=== PATIENT | male | born 1995 | race American Indian/Alaskan Native ===

== ENCOUNTER 2018-08-15 22:51 | Emergency (ER) | payer SELFPAY ==
[2018-08-15 23:26] VITALS: BP 107/66
[2018-08-15 23:42] LABS: Hematocrit 43.3 % (35.5-45.6); Mean Corpuscular HGB Conc 35 % (32-34); Mean Corpuscular Hemoglobin 28 pg (28-32); Mean Corpuscular Volume 81 fl (84-94); Platelet Count 219 K/mm3 (140-440); Red Blood Count 5.32 M/mm3 (3.65-5.03); Red Cell Distribution Width 13.4 % (13.2-15.2)
[2018-08-15 23:57] LABS: BUN/Creatinine Ratio 10; Blood Urea Nitrogen 12 mg/dL (9-20); Calcium 8.9 mg/dL (8.4-10.2); Hemolysis Index 7
[2018-08-16 00:41] LABS: Band Neutrophils # (Manual) 0.5 K/mm3; Basophils % (Manual) 0 % (0.0-1.8); Eosinophils % (Manual) 0 % (0.0-4.3); Platelet Estimate Consistent w Auto; RBC Morphology Normal; Total Cells Counted 100
--- NOTE | 2018-08-16 01:05 | Emergency Department Report ---
ED General Adult HPI - General Chief complaint: Weakness Stated complaint: SEVERE WEAKNESS/LOSS OF APPETITE Time Seen by Provider: 08/16/18 00:58 Source: patient Mode of arrival: Ambulatory Limitations: No Limitations - History of Present Illness Initial comments: 23-year-old [place] male presents to the emergency room reporting weakness, decreased appetite, increased drowsiness diarrhea that has now resolved-see anything. It was reported that he has body aches, subjective fever, drinking well and urinating well. Denies any vomiting and admits to nausea. - Related Data Home Medications Medication Instructions Recorded Confirmed Last Taken No Known Home Medications [No 08/16/18 08/16/18 Unknown Reported Home Medications] Allergies Allergy/AdvReac Type Severity Reaction Status Date / Time No Known Allergies Allergy Verified 08/16/18 21:05 ED Review of Systems ROS: Stated complaint: SEVERE WEAKNESS/LOSS OF APPETITE Other details as noted in HPI ED Past Medical Hx - Past Medical History Previous Medical History?: No - Surgical History Past Surgical History?: No - Social History Smoking Status: Light Tobacco Smoker Substance Use Type: Alcohol - Medications Home Medications: Home Medications Medication Instructions Recorded Confirmed Last Taken Type No Known Home Medications [No 08/16/18 08/16/18 Unknown History Reported Home Medications] ED Physical Exam - General Limitations: No Limitations General appearance: alert, in no apparent distress - Head Head exam: Present: atraumatic, normocephalic - Eye Eye exam: Present: EOMI - ENT ENT exam: Present: mucous membranes moist - Respiratory Respiratory exam: Present: normal lung sounds bilaterally. Absent: respiratory distress - Cardiovascular Cardiovascular Exam: Present: regular rate, normal rhythm. Absent: systolic murmur, diastolic murmur, rubs, gallop - GI/Abdominal GI/Abdominal exam: Present: soft, normal bowel sounds. Absent: distended, tenderness - Extremities Exam Extremities exam: Present: normal inspection - Neurological Exam Neurological exam: Present: alert, oriented X3 - Psychiatric Psychiatric exam: Present: normal affect, normal mood - Skin Skin exam: Present: warm, dry, intact, normal color. Absent: rash ED Course Vital Signs 08/15/18 08/16/18 23:20 02:40 Temperature 99.7 F H Pulse Rate 100 H 66 Respiratory 16 16 Rate Blood Pressure 107/66 O2 Sat by Pulse 99 98 Oximetry ED Medical Decision Making - Lab Data Result diagrams: 08/15/18 23:30 08/15/18 23:30 - Radiology Data Radiology results: report reviewed FINAL REPORT EXAM: XR CHEST ROUTINE 2V HISTORY: flulike symptoms decreased wbc TECHNIQUE: A single view of the chest was submitted. FINDINGS: The heart size and vascularity appear normal. The lungs are clear. Pleural fluid is not seen. The skeletal structures appear normal. IMPRESSION: Normal chest. Transcribed By: RB Dictated By: MARIA VICTORIA LOZANO MD Electronically Authenticated By: MARIA VICTORIA LOZANO MD Signed Date/Time: 08/16/18125 DD/ 5 TD/TT: 08/16/18125 - Medical Decision Making Patient has been evaluated by this provider fast track. Patient was given Zofran for nausea CBC CMP urinalysis CBC shows neutropenic of a WBC of 2.7 Urinalysis protein is greater than 500 Patient had Zofran which she reports has helped. He started by mouth trial. This patient he needs to follow up with her primary care provider I also recommend patient to have HIV test he can have this done at [place] on [facility]. Critical care attestation.: If time is entered above; I have spent that time in minutes in the direct care of this critically ill patient, excluding procedure time. ED Disposition Clinical Impression: Neutropenic Qualifiers: Neutropenia type: unspecified Qualified Code(s): D70.9 - Neutropenia, unspecified Proteinuria, unspecified Qualifiers: Proteinuria type: unspecified Qualified Code(s): R80.9 - Proteinuria, unspecified Disposition: DC-01 TO HOME OR SELFCARE Is pt being admited?: No Does the pt Need Aspirin: No Condition: Stable Instructions: Neutropenia (ED) Additional Instructions: Please increase her fluid intake advance her diet as tolerated follow up with the primary care clinic I have listed several below for your convenience. Referrals: NOA GARCIA MD [Primary Care Provider] - 3-5 Days [facility] [Outside] - 3-5 Days QUINTON BOYD MD [Staff Physician] - 3-5 Days Forms: Accompanied Note, Work/School Release Form(ED)
[2018-08-16] MEDS ORDERED: ZOFRAN ODT PO ONE (01:25)
--- NOTE | 2018-08-16 01:27 | XRay Report ---
FINAL REPORT EXAM: XR CHEST ROUTINE 2V HISTORY: flulike symptoms decreased wbc TECHNIQUE: A single view of the chest was submitted. FINDINGS: The heart size and vascularity appear normal. The lungs are clear. Pleural fluid is not seen. The skeletal structures appear normal. IMPRESSION: Normal chest.
[2018-08-16 01:51] LABS: Bacteria,Urine 1+ /HPF (Negative); Bilirubin,Urine NEG (Negative); Blood,Urine SM (Negative); Color,Urine Amber (Yellow); Mucus,Urine 2+ /HPF; Urobilinogen,Urine < 2.0 mg/dL (<2.0)
[2018-08-16 01:53] LABS: Protein,Urine >500 mg/dL (Negative)
== END 2018-08-16 02:40 | disposition home or self-care (01) ==
LOC: ED 22:51
DX: D70.9 Neutropenia, unspecified (principal); R80.9 Proteinuria, unspecified; F17.200 Nicotine dependence, unspecified, uncomplicated
CPT/HCPCS: 36415; 71046; 80048; 81001; 85007; 85025; 93005; 93010; 99284; Q0162

== ENCOUNTER 2018-08-16 19:37 | Inpatient (IN) | payer SELFPAY ==
[2018-08-16] MEDS ORDERED: TYLENOL ONE (21:00)
[2018-08-16] MEDS ORDERED: NACL 0.9% 500 ML 500 ML IV ONE (21:10)
[2018-08-16] MEDS ORDERED: TYLENOL PO STA (21:10)
[2018-08-16 21:37] LABS: Basophils % (Auto) 0.7 % (0.0-1.8); Hematocrit 39.5 % (35.5-45.6); Hemoglobin 13.6 gm/dl (11.8-15.2); Lymphocytes # (Auto) 1.3 K/mm3 (1.2-5.4); Lymphocytes % (Auto) 43.3 % (13.4-35.0); Mean Corpuscular HGB Conc 35 % (32-34); Mean Corpuscular Hemoglobin 28 pg (28-32); Mean Corpuscular Volume 82 fl (84-94); Monocytes # (Auto) 0.3 K/mm3 (0.0-0.8); Monocytes % (Auto) 10.2 % (0.0-7.3); Platelet Count 163 K/mm3 (140-440); Red Blood Count 4.82 M/mm3 (3.65-5.03); Red Cell Distribution Width 13.2 % (13.2-15.2)
[2018-08-16 21:49] LABS: INR 0.99 (0.87-1.13)
[2018-08-16 22:11] LABS: Alanine Aminotransferase 53 units/L (7-56); Albumin 3.1 g/dL (3.9-5); BUN/Creatinine Ratio 9; Blood Urea Nitrogen 11 mg/dL (9-20); Calcium 7.8 mg/dL (8.4-10.2); Hemolysis Index 14
[2018-08-16] MEDS ORDERED: NACL 0.9% 1000 ML 1,000 ML IV ONE (22:12)
[2018-08-16] MEDS ORDERED: LEVAQUIN 750MG/150ML 750 MG/150 ML BAG IV ONE (22:13)
--- NOTE | 2018-08-16 22:18 | Emergency Department Report ---
- General Chief complaint: Weakness Stated complaint: WEAKNESS Time Seen by Provider: 08/16/18 22:11 Source: patient, EMS Mode of arrival: Stretcher Limitations: No Limitations - History of Present Illness Initial comments: Patient said that over the past 7 days he's been feeling generalized body weakness and has been having diarrhea with fever. He also said he is nauseous and hasn't been able to eat. Patient denies any medical problems. MD Complaint: generalized weakness, lack of energy -: Gradual, days(s) (7) Location: generalized Severity: moderate Severity scale (0 -10): 7 Quality: constant Consistency: constant Improves with: none Worsens with: none Associated Symptoms: fever/chills, headaches, loss of appetite, shortness of breath. denies: chest pain, confusion, dark stools, diaphoresis - Related Data Home Medications Medication Instructions Recorded Confirmed Last Taken No Known Home Medications [No 08/16/18 08/16/18 Unknown Reported Home Medications] Allergies Allergy/AdvReac Type Severity Reaction Status Date / Time No Known Allergies Allergy Verified 08/16/18 21:05 ED Review of Systems ROS: Stated complaint: WEAKNESS Other details as noted in HPI Comment: All other systems reviewed and negative Constitutional: chills, fever Eyes: denies: eye pain ENT: denies: ear pain Respiratory: shortness of breath. denies: cough Cardiovascular: denies: chest pain, palpitations, dyspnea on exertion, orthopnea Endocrine: no symptoms reported Gastrointestinal: abdominal pain, nausea, diarrhea. denies: vomiting, hematemesis, hematochezia Genitourinary: denies: urgency, dysuria, frequency Musculoskeletal: denies: back pain Skin: denies: rash, lesions Neurological: denies: headache, weakness, numbness Psychiatric: denies: anxiety, depression Hematological/Lymphatic: denies: easy bleeding, easy bruising ED Past Medical Hx - Past Medical History Previous Medical History?: No - Surgical History Past Surgical History?: No - Social History Smoking Status: Never Smoker Substance Use Type: None - Medications Home Medications: Home Medications Medication Instructions Recorded Confirmed Last Taken Type No Known Home Medications [No 08/16/18 08/16/18 Unknown History Reported Home Medications] ED Physical Exam - General Limitations: No Limitations General appearance: alert, in no apparent distress - Head Head exam: Present: atraumatic, normocephalic, normal inspection - Eye Eye exam: Present: normal appearance, PERRL, EOMI Pupils: Present: normal accommodation - ENT ENT exam: Present: normal exam, normal orophraynx, mucous membranes moist - Neck Neck exam: Present: normal inspection, full ROM. Absent: tenderness, meningismus - Respiratory Respiratory exam: Present: normal lung sounds bilaterally. Absent: respiratory distress, wheezes, rales, rhonchi, stridor - Cardiovascular Cardiovascular Exam: Present: regular rate, normal rhythm, normal heart sounds - GI/Abdominal GI/Abdominal exam: Present: soft, tenderness (Periumbilical region), normal bowel sounds. Absent: distended, guarding, rebound, rigid - Rectal Rectal exam: Present: deferred - Extremities Exam Extremities exam: Present: normal inspection, full ROM, normal capillary refill. Absent: tenderness - Back Exam Back exam: Present: normal inspection, full ROM. Absent: tenderness - Neurological Exam Neurological exam: Present: alert, oriented X3, CN II-XII intact - Psychiatric Psychiatric exam: Present: normal affect, normal mood - Skin Skin exam: Present: warm, dry, intact, normal color. Absent: rash - Assessment Assessment Interval: Baseline - Level of Consciousness 1a. Level of Consciousness: alert/keenly responsive - LOC Questions 1b. LOC Questions: answers both correctly - LOC Command 1c. LOC Commands: performs tasks correctly - Best Gaze 2. Best Gaze: normal - Visual 3. Visual: no visual loss - Facial Palsy 4. Facial Palsy: normal symmetrical movement - Motor Arm 5b. Motor Arm Right: no drift 5a. Motor Arm Left: no drift - Motor Leg 6a. Motor Leg Left: no drift 6b. Motor Leg Right: no drift - Limb Ataxia 7. Limb Ataxia: absent - Sensory 8. Sensory: normal - Best Language 9. Best Language: no aphasia - Dysarthria 10. Dysarthria: normal - Extinction and Inattention 11. Extinction/Inattention: no abnormality - Scoring Total Score: 0 Stroke Severity: No Stroke Symptoms ED Course Vital Signs 08/16/18 20:52 Temperature 102.2 F H Pulse Rate 82 Respiratory 20 Rate Blood Pressure 95/63 O2 Sat by Pulse 98 Oximetry ED Medical Decision Making - Lab Data Result diagrams: 08/16/18 21:26 08/16/18 21:26 Lab Results 09/27/18 09/27/18 09/27/18 Range/Units 21:26 21:26 21:26 WBC 3.1 L (4.5-11.0) K/mm3 RBC 4.82 (3.65-5.03) M/mm3 Hgb 13.6 (11.8-15.2) gm/dl Hct 39.5 (35.5-45.6) % MCV 82 L (84-94) fl MCH 28 (28-32) pg MCHC 35 H (32-34) % RDW 13.2 (13.2-15.2) % Plt Count 163 (140-440) K/mm3 Lymph % (Auto) 43.3 H (13.4-35.0) % [place] % (Auto) 10.2 H (0.0-7.3) % Eos % (Auto) 0.0 (0.0-4.3) % Baso % (Auto) 0.7 (0.0-1.8) % Lymph # 1.3 (1.2-5.4) K/mm3 [place] # 0.3 (0.0-0.8) K/mm3 Eos # 0.0 (0.0-0.4) K/mm3 Baso # 0.0 (0.0-0.1) K/mm3 Seg Neutrophils % 45.8 (40.0-70.0) % Seg Neutrophils # 1.4 L (1.8-7.7) K/mm3 PT 13.6 (12.2-14.9) Sec. INR 0.99 (0.87-1.13) VBG pH (7.320-7.420) Sodium 132 L (137-145) mmol/L Potassium 4.3 (3.6-5.0) mmol/L Chloride 98.0 (98-107) mmol/L Carbon Dioxide 24 (22-30) mmol/L Anion Gap 14 mmol/L BUN 11 (9-20) mg/dL Creatinine 1.2 (0.8-1.5) mg/dL Estimated GFR > 60 ml/min BUN/Creatinine Ratio 9 % Glucose 100 (75-100) mg/dL Lactic Acid (0.7-2.0) mmol/L Calcium 7.8 L (8.4-10.2) mg/dL Total Bilirubin 0.30 (0.1-1.2) mg/dL AST 103 H (5-40) units/L ALT 53 (7-56) units/L Alkaline Phosphatase 55 (35-129) units/L Total Protein 6.2 L (6.3-8.2) g/dL Albumin 3.1 L (3.9-5) g/dL Albumin/Globulin Ratio 1.0 % Lipase (13-60) units/L 08/16/18 08/16/18 08/16/18 Range/Units 21:26 21:26 21:26 WBC (4.5-11.0) K/mm3 RBC (3.65-5.03) M/mm3 Hgb (11.8-15.2) gm/dl Hct (35.5-45.6) % MCV (84-94) fl MCH (28-32) pg MCHC (32-34) % RDW (13.2-15.2) % Plt Count (140-440) K/mm3 Lymph % (Auto) (13.4-35.0) % [place] % (Auto) (0.0-7.3) % Eos % (Auto) (0.0-4.3) % Baso % (Auto) (0.0-1.8) % Lymph # (1.2-5.4) K/mm3 [place] # (0.0-0.8) K/mm3 Eos # (0.0-0.4) K/mm3 Baso # (0.0-0.1) K/mm3 Seg Neutrophils % (40.0-70.0) % Seg Neutrophils # (1.8-7.7) K/mm3 PT (12.2-14.9) Sec. INR (0.87-1.13) VBG pH 7.493 H (7.320-7.420) Sodium (137-145) mmol/L Potassium (3.6-5.0) mmol/L Chloride (98-107) mmol/L Carbon Dioxide (22-30) mmol/L Anion Gap mmol/L BUN (9-20) mg/dL Creatinine (0.8-1.5) mg/dL Estimated GFR ml/min BUN/Creatinine Ratio % Glucose (75-100) mg/dL Lactic Acid 1.10 (0.7-2.0) mmol/L Calcium (8.4-10.2) mg/dL Total Bilirubin (0.1-1.2) mg/dL AST (5-40) units/L ALT (7-56) units/L Alkaline Phosphatase (35-129) units/L Total Protein (6.3-8.2) g/dL Albumin (3.9-5) g/dL Albumin/Globulin Ratio % Lipase 35 (13-60) units/L 08/17/18 Range/Units 00:34 WBC (4.5-11.0) K/mm3 RBC (3.65-5.03) M/mm3 Hgb (11.8-15.2) gm/dl Hct (35.5-45.6) % MCV (84-94) fl MCH (28-32) pg MCHC (32-34) % RDW (13.2-15.2) % Plt Count (140-440) K/mm3 Lymph % (Auto) (13.4-35.0) % [place] % (Auto) (0.0-7.3) % Eos % (Auto) (0.0-4.3) % Baso % (Auto) (0.0-1.8) % Lymph # (1.2-5.4) K/mm3 [place] # (0.0-0.8) K/mm3 Eos # (0.0-0.4) K/mm3 Baso # (0.0-0.1) K/mm3 Seg Neutrophils % (40.0-70.0) % Seg Neutrophils # (1.8-7.7) K/mm3 PT (12.2-14.9) Sec. INR (0.87-1.13) VBG pH (7.320-7.420) Sodium (137-145) mmol/L Potassium (3.6-5.0) mmol/L Chloride (98-107) mmol/L Carbon Dioxide (22-30) mmol/L Anion Gap mmol/L BUN (9-20) mg/dL Creatinine (0.8-1.5) mg/dL Estimated GFR ml/min BUN/Creatinine Ratio % Glucose (75-100) mg/dL Lactic Acid 0.80 (0.7-2.0) mmol/L Calcium (8.4-10.2) mg/dL Total Bilirubin (0.1-1.2) mg/dL AST (5-40) units/L ALT (7-56) units/L Alkaline Phosphatase (35-129) units/L Total Protein (6.3-8.2) g/dL Albumin (3.9-5) g/dL Albumin/Globulin Ratio % Lipase (13-60) units/L - EKG Data -: EKG Interpreted by Me EKG shows normal: sinus rhythm Rate: normal (78) - EKG Data When compared to previous EKG there are: previous EKG unavailable Interpretation: LVH 08/16/18 22:15 Early Repolarization. No STEMI. - Radiology Data Radiology results: report reviewed, image reviewed CT scan of the head, abdomen and pelvis is unremarkable. Chest x-ray is also negative. - Medical Decision Making Patient's needs criteria for sepsis. He is dehydrated with hypertension, hypocalcemia, neutropenia and fever. His diabetes has been on and is still pending. Patient will be admitted by the hospitalist on-call Dr. Rhoades for further evaluation and management. Critical Care Time: Yes Critical care time in (mins) excluding proc time.: 45 Critical care attestation.: If time is entered above; I have spent that time in minutes in the direct care of this critically ill patient, excluding procedure time. ED Disposition Clinical Impression: Generalized weakness, Dehydration, Hypocalcemia Neutropenic Qualifiers: Neutropenia type: unspecified Qualified Code(s): D70.9 - Neutropenia, unspecified Diarrhea Qualifiers: Diarrhea type: unspecified type Qualified Code(s): R19.7 - Diarrhea, unspecified Sepsis Qualifiers: Sepsis type: sepsis due to unspecified organism Qualified Code(s): A41.9 - Sepsis, unspecified organism Fever Qualifiers: Fever type: unspecified Qualified Code(s): R50.9 - Fever, unspecified Hypotension Qualifiers: Hypotension type: unspecified hypotension type Qualified Code(s): I95.9 - Hypotension, unspecified Disposition: 09 OP ADMIT IP TO THIS HOSP Is pt being admited?: Yes Does the pt Need Aspirin: No Condition: Fair Referrals: PRIMARY CARE, [Primary Care Provider] - 3-5 Days Time of Disposition: 01:45
--- NOTE | 2018-08-16 22:36 | XRay Report ---
FINAL REPORT PROCEDURE: XR CHEST 1V AP TECHNIQUE: Chest radiograph anteroposterior view. CPT 46484 HISTORY: possible Sepsis COMPARISON: No prior studies are available for comparison. FINDINGS: Heart: Normal. Mediastinum/Vessels: Normal. Lungs/Pleural space: Normal. Bony thorax: No acute osseous abnormality. Life support devices: Monitoring devices.. IMPRESSION: No acute cardiopulmonary abnormality.
--- NOTE | 2018-08-16 23:17 | Cat Scan Report ---
FINAL REPORT PROCEDURE: CT HEAD/BRAIN WO CON TECHNIQUE: Computerized tomography of the head was performed without contrast material. HISTORY: Headache COMPARISON: No prior studies are available for comparison. FINDINGS: Skull and scalp: Normal. Paranasal sinuses: Normal. Ventricles and subarachnoid spaces: Normal. Cerebrum: No evidence of hemorrhage, acute infarction or mass . Cerebellum and brainstem: No evidence of hemorrhage, acute infarction or mass. Vasculature: Normal. Comments: None. IMPRESSION: Normal Examination
--- NOTE | 2018-08-16 23:23 | Cat Scan Report ---
FINAL REPORT PROCEDURE: CT ABDOMEN PELVIS W CON TECHNIQUE: Computerized axial tomography of the abdomen and pelvis was performed after the IV injection of iodinated nonionic contrast. HISTORY: Abdominal Pain COMPARISON: No prior studies are available for comparison. FINDINGS: Visualized lower thorax: No significant abnormality. Liver: Normal size and attenuation. Spleen: Normal size and attenuation. Gallbladder and biliary system: Contracted gallbladder. Pancreas: Normal. Adrenals: Normal. Kidneys: Normal. No hydronephrosis. GI tract: Normal. No dilated loops of bowel. Appendix is normal Lymph nodes and mesentery: Normal. Vasculature: Normal. Bladder: Normal. Reproductive organs: Normal. Peritoneum: No free fluid. Musculoskeletal structures: No significant abnormality. Other: None. IMPRESSION: Normal examination of the abdomen and pelvis. No mass or obstruction. Contracted gallbladder.
[2018-08-17] MEDS ORDERED: CALCIUM GLUCONATE 1,000 MG in NACL 0.9% 100 ML IV ONE (00:17)
[2018-08-17] MEDS ORDERED: ZOFRAN IV PRN (02:13)
[2018-08-17] MEDS ORDERED: SODIUM CHLORIDE FLUSH SYRINGE 10 ML IV PRN (02:13)
[2018-08-17] MEDS ORDERED: MORPHINE IV PRN (02:13)
[2018-08-17] MEDS ORDERED: TYLENOL PO PRN (02:13)
--- NOTE | 2018-08-17 02:13 | History and Physical Report ---
History of Present Illness Date of examination: 08/17/18 History of present illness: 23-year-old man with no medical problems comes emergency room with complaints of fever, chills intermittently over one week. He also states that he's had 2 episodes of diarrhea over the last 1 week. He complains of generalized weakness , decreased appetite. He is a homosexual, never been tested for HIV. Also complaining of abdominal pain, mid abdomen, unable to say how long it lasts , intensity 5/10, no radiation, he can't identify exacerbating or relieving factors. Review of systems Constitutional: no weight loss Ears, eyes, nose, mouth and throat: no nasal congestion, no nasal discharge, no sinus pressure, no vision change, no red eye. Neck: No neck pain or rigidity. Cardiovascular: no chest pain, palpitations Respiratory: no cough, shortness of breath Gastrointestinal: no abdominal pain hematochezia Genitourinary : no frequency , no hematuria Musculoskeletal: no joint swelling or muscle ache Integumentary: no rash, no pruritis Neurological: no parathesias, no numbness, no focal weakness Endocrine: no cold or heat intolerance, no polyuria or polydipsia Hematologic/Lymphatic: no easy bruising, no easy bleeding, no gland swelling Allergic/Immunologic: no urticaria, no angioedema. PAST MEDICAL HISTORY: None PAST SURGICAL HISTORY: None SOCIAL HISTORY: + alcohol, no drugs, +tobacco FAMILY HISTORY: Hypertension Medications and Allergies Allergies Allergy/AdvReac Type Severity Reaction Status Date / Time No Known Allergies Allergy Verified 08/16/18 21:05 Home Medications Medication Instructions Recorded Confirmed Last Taken Type No Known Home Medications [No 08/16/18 08/16/18 Unknown History Reported Home Medications] Exam - Physical Exam Narrative exam: Gen. appearance: Patient lying in bed, no apparent distress HEENT: Normocephalic, atraumatic, pupils equally round and reactive to light, extraocular movement intact, and no sclericterus,. No JVD or thyromegaly or nodule,neck supple, no carotid bruit ,mucous membranes moist, no exudate or erythema Heart: S1, S2, regular rate and rhythm Lungs: Clear bilaterally, breathing comfortable Abdomen: Positive bowel sounds, non-tender, nondistended, no organomegaly Extremity:no edema cyanosis, clubbing Skin: no rash, dry, warm Neuro: Oriented 3, cranial nerves II-12 intact, speech is fluent, motor and sensory intact - Constitutional Vitals: Temp Pulse Resp BP Pulse Ox 102.2 F H 82 20 95/63 98 08/16/18 20:52 08/16/18 20:52 08/16/18 20:52 08/16/18 20:52 08/16/18 20:52 Results - Labs CBC & Chem 7: 08/16/18 21:26 08/16/18 21:26 Labs: Abnormal lab results 08/16/18 08/16/18 08/16/18 Range/Units 21:26 21:26 21:26 WBC 3.1 L (4.5-11.0) K/mm3 MCV 82 L (84-94) fl MCHC 35 H (32-34) % Lymph % (Auto) 43.3 H (13.4-35.0) % [place] % (Auto) 10.2 H (0.0-7.3) % Seg Neutrophils # 1.4 L (1.8-7.7) K/mm3 VBG pH 7.493 H (7.320-7.420) Sodium 132 L (137-145) mmol/L Calcium 7.8 L (8.4-10.2) mg/dL AST 103 H (5-40) units/L Total Protein 6.2 L (6.3-8.2) g/dL Albumin 3.1 L (3.9-5) g/dL - Imaging and Cardiology CT scan - abdomen: report reviewed CT Scan - head: report reviewed Assessment and Plan Assessment SIRS Abdominal pain, nonspecific Plan Admit to medicine Start IV fluids, IV antibiotic, follow cultures Consult infectious disease, HIV test pending DVT prophylaxis
[2018-08-17 02:36] LABS: Color,Urine Straw (Yellow)
[2018-08-17 02:37] LABS: Bilirubin,Urine NEG (Negative); Blood,Urine SM (Negative); Protein,Urine <15 mg/dL mg/dL (Negative); RBC,Urine < 1.0 /HPF (0.0-6.0); Urobilinogen,Urine < 2.0 mg/dL (<2.0); WBC,Urine < 1.0 /HPF (0.0-6.0)
[2018-08-17] MEDS: NACL 0.9% 1000 ML 1,000 ML IV SCH ×3 (05:12→21:37)
[2018-08-17] MEDS: ZOSYN/NS 4.5GM/100ML 4.5 GM/100 ML VIAL IV SCH ×2 (05:46→13:01)
[2018-08-17] MEDS ORDERED: ZOSYN/NS 4.5GM/100ML 4.5 GM/100 ML VIAL IV SCH (06:00)
[2018-08-17 06:10] LABS: Hematocrit 40.7 % (35.5-45.6); Hemoglobin 13.7 gm/dl (11.8-15.2); Mean Corpuscular HGB Conc 34 % (32-34); Mean Corpuscular Hemoglobin 28 pg (28-32); Mean Corpuscular Volume 83 fl (84-94); Platelet Count 159 K/mm3 (140-440); Red Blood Count 4.93 M/mm3 (3.65-5.03); Red Cell Distribution Width 13.4 % (13.2-15.2)
[2018-08-17 08:09] LABS: Basophils % (Manual) 0 % (0.0-1.8); Eosinophils % (Manual) 0 % (0.0-4.3); Total Cells Counted 100
[2018-08-17 08:14] LABS: Anisocytosis Few; Platelet Estimate Consistent w Auto
[2018-08-17] MEDS ORDERED: LOVENOX SUB-Q SCH (10:00)
[2018-08-17] MEDS ORDERED: LEVAQUIN 750MG/150ML 750 MG/150 ML BAG IV SCH (10:00)
[2018-08-17] MEDS: SODIUM CHLORIDE FLUSH SYRINGE 10 ML IV SCH ×2 (11:25→21:32)
[2018-08-17] MEDS: LOVENOX SUB-Q SCH (11:28)
[2018-08-17] MEDS ORDERED: NACL 0.9% 1000 ML 1,000 ML IV ONE (11:30)
--- NOTE | 2018-08-17 12:49 | Progress Note ---
Assessment and Plan Assessment and plan: Patient is a 23 yo man with a history of tobacco dependency who presented to [facility] ED with fevers. * CT abd/pelvis with contrast IMPRESSION: Normal examination of the abdomen and pelvis. No mass or obstruction. Contracted gallbladder * CT head wo contrast IMPRESSION: Normal Examination * pCXR IMPRESSION: No acute cardiopulmonary abnormality. SIRs without evidence of source of infection: HIV pending, pt agrees to testing , risk factor being homosexual activity. Hyponatremia, dehydration, hypovolemia: treat with IVF Hypotension with dehydration: give iv fluid bolus History Interval history: Patient was seen and examined. Follow-up on current diagnosis of fevers. Overnight uneventful. Patient denies any chest pain, shortness breath, nausea/ vomiting or severe headaches. Imaging, nursing note, chart, labs and old chart reviewed. Discussed with patient. Hospitalist Physical - Physical exam Narrative exam: GEN: WDWN, NAD, Awake, Alert, Orientated x 3 HEENT: NCAT, EOMI, PERRL, OP Clear NECK: supple, no adenopathy, no thyromegaly, no JVD CVS/HEART: RRR, normal S1S2, pulses present bilaterally CHEST/LUNGS: CTA B, Symmetrical chest expansion, good air entry bilaterally GI/Abdomen: soft, NTND, good bowel sounds, no guarding or rebound /Bladder: no suprapubic tenderness, no CVA or paraspinal tenderness EXT/Skin: no c/c/e, no obvious rash MSK: FROM x 4 Neuro: CN 2-12 grossly intact, no new focal deficits Psych: calm - Constitutional Vitals: Temp Pulse Resp BP Pulse Ox 98.2 F 64 16 73/40 97 08/17/18 02:20 08/17/18 06:33 08/17/18 06:33 08/17/18 06:33 08/17/18 06:33 Results - Labs CBC & Chem 7: 08/17/18 05:16 08/16/18 21:26 Labs: Laboratory Last Values WBC 2.5 K/mm3 (4.5-11.0) L 08/17/18 05:16 RBC 4.93 M/mm3 (3.65-5.03) 08/17/18 05:16 Hgb 13.7 gm/dl (11.8-15.2) 08/17/18 05:16 Hct 40.7 % (35.5-45.6) 08/17/18 05:16 MCV 83 fl (84-94) L 08/17/18 05:16 MCH 28 pg (28-32) 08/17/18 05:16 MCHC 34 % (32-34) 08/17/18 05:16 RDW 13.4 % (13.2-15.2) 08/17/18 05:16 Plt Count 159 K/mm3 (140-440) 08/17/18 05:16 Lymph % (Auto) 43.3 % (13.4-35.0) H 08/16/18 21:26 [place] % (Auto) 10.2 % (0.0-7.3) H 08/16/18 21:26 Eos % (Auto) 0.0 % (0.0-4.3) 08/16/18 21:26 Baso % (Auto) 0.7 % (0.0-1.8) 08/16/18 21:26 Lymph # 1.3 K/mm3 (1.2-5.4) 08/16/18 21:26 [place] # 0.3 K/mm3 (0.0-0.8) 08/16/18 21:26 Eos # 0.0 K/mm3 (0.0-0.4) 08/16/18 21:26 Baso # 0.0 K/mm3 (0.0-0.1) 08/16/18 21:26 Add Manual Diff Complete 08/17/18 05:16 Total Counted 100 08/17/18 05:16 Seg Neutrophils % Rn Endocrinology 08/17/18 05:16 Seg Neuts % (Manual) 46.0 % (40.0-70.0) 08/17/18 05:16 Band Neutrophils % 0 % 08/17/18 05:16 Lymphocytes % (Manual) 47.0 % (13.4-35.0) H 08/17/18 05:16 Reactive Lymphs % (Man) 0 % 08/17/18 05:16 Monocytes % (Manual) 7.0 % (0.0-7.3) 08/17/18 05:16 Eosinophils % (Manual) 0 % (0.0-4.3) 08/17/18 05:16 Basophils % (Manual) 0 % (0.0-1.8) 08/17/18 05:16 Metamyelocytes % 0 % 08/17/18 05:16 Myelocytes % 0 % 08/17/18 05:16 Promyelocytes % 0 % 08/17/18 05:16 Blast Cells % 0 % 08/17/18 05:16 Nucleated RBC % Not Reportable 08/17/18 05:16 Seg Neutrophils # 1.4 K/mm3 (1.8-7.7) L 08/16/18 21:26 Seg Neutrophils # Man 1.2 K/mm3 (1.8-7.7) L 08/17/18 05:16 Band Neutrophils # 0.0 K/mm3 08/17/18 05:16 Lymphocytes # (Manual) 1.2 K/mm3 (1.2-5.4) 08/17/18 05:16 Abs React Lymphs (Man) 0.0 K/mm3 08/17/18 05:16 Monocytes # (Manual) 0.2 K/mm3 (0.0-0.8) 08/17/18 05:16 Eosinophils # (Manual) 0.0 K/mm3 (0.0-0.4) 08/17/18 05:16 Basophils # (Manual) 0.0 K/mm3 (0.0-0.1) 08/17/18 05:16 Metamyelocytes # 0.0 K/mm3 08/17/18 05:16 Myelocytes # 0.0 K/mm3 08/17/18 05:16 Promyelocytes # 0.0 K/mm3 08/17/18 05:16 Blast Cells # 0.0 K/mm3 08/17/18 05:16 WBC Morphology Not Reportable 08/17/18 05:16 Hypersegmented Neuts Not Reportable 08/17/18 05:16 Hyposegmented Neuts Not Reportable 08/17/18 05:16 Hypogranular Neuts Not Reportable 08/17/18 05:16 Smudge Cells Not Reportable 08/17/18 05:16 Toxic Granulation Not Reportable 08/17/18 05:16 Toxic Vacuolation Not Reportable 08/17/18 05:16 Dohle Bodies Not Reportable 08/17/18 05:16 Pelger-Huet Anomaly Not Reportable 08/17/18 05:16 [place] Rods Not Reportable 08/17/18 05:16 Platelet Estimate Consistent w auto 08/17/18 05:16 Clumped Platelets Not Reportable 08/17/18 05:16 Plt Clumps, EDTA Not Reportable 08/17/18 05:16 Large Platelets Not Reportable 08/17/18 05:16 Giant Platelets Not Reportable 08/17/18 05:16 Platelet Satelliting Not Reportable 08/17/18 05:16 Plt Morphology Comment Not Reportable 08/17/18 05:16 RBC Morphology Not Reportable 08/17/18 05:16 Dimorphic RBCs Not Reportable 08/17/18 05:16 Polychromasia Not Reportable 08/17/18 05:16 Hypochromasia Not Reportable 08/17/18 05:16 Poikilocytosis Not Reportable 08/17/18 05:16 Anisocytosis Few 08/17/18 05:16 Microcytosis Not Reportable 08/17/18 05:16 Macrocytosis Not Reportable 08/17/18 05:16 Spherocytes Not Reportable 08/17/18 05:16 Pappenheimer Bodies Not Reportable 08/17/18 05:16 Sickle Cells Not Reportable 08/17/18 05:16 Target Cells Not Reportable 08/17/18 05:16 Tear Drop Cells Not Reportable 08/17/18 05:16 Ovalocytes Not Reportable 08/17/18 05:16 Helmet Cells Not Reportable 08/17/18 05:16 [place] Bodies Not Reportable 08/17/18 05:16 [place] Rings Not Reportable 08/17/18 05:16 [place] Cells Not Reportable 08/17/18 05:16 Bite Cells Not Reportable 08/17/18 05:16 Crenated Cell Not Reportable 08/17/18 05:16 Elliptocytes Not Reportable 08/17/18 05:16 Acanthocytes (Spur) Not Reportable 08/17/18 05:16 Rouleaux Not Reportable 08/17/18 05:16 Hemoglobin C Crystals Not Reportable 08/17/18 05:16 Schistocytes Not Reportable 08/17/18 05:16 Malaria parasites Not Reportable 08/17/18 05:16 Hernán Bodies Not Reportable 08/17/18 05:16 Hem Pathologist Commnt No 08/17/18 05:16 PT 13.6 Sec. (12.2-14.9) 08/16/18 21:26 INR 0.99 (0.87-1.13) 08/16/18 21:26 VBG pH 7.493 (7.320-7.420) H 08/16/18 21:26 Sodium 132 mmol/L (137-145) L 08/16/18 21:26 Potassium 4.3 mmol/L (3.6-5.0) 08/16/18 21:26 Chloride 98.0 mmol/L (98-107) 08/16/18 21:26 Carbon Dioxide 24 mmol/L (22-30) 08/16/18 21:26 Anion Gap 14 mmol/L 08/16/18 21:26 BUN 11 mg/dL (9-20) 08/16/18 21:26 Creatinine 1.2 mg/dL (0.8-1.5) 08/16/18 21:26 Estimated GFR > 60 ml/min 08/16/18 21:26 BUN/Creatinine Ratio 9 % 08/16/18 21:26 Glucose 100 mg/dL (75-100) 08/16/18 21:26 Lactic Acid 0.80 mmol/L (0.7-2.0) 08/17/18 00:34 Calcium 7.8 mg/dL (8.4-10.2) L 08/16/18 21:26 Total Bilirubin 0.30 mg/dL (0.1-1.2) 08/16/18 21:26 AST 103 units/L (5-40) H 08/16/18 21:26 ALT 53 units/L (7-56) 08/16/18 21:26 Alkaline Phosphatase 55 units/L (35-129) 08/16/18 21:26 Total Protein 6.2 g/dL (6.3-8.2) L 08/16/18 21:26 Albumin 3.1 g/dL (3.9-5) L 08/16/18 21:26 Albumin/Globulin Ratio 1.0 % 08/16/18 21:26 Lipase 35 units/L (13-60) 08/16/18 21:26 Urine Color Straw (Yellow) 08/17/18 02:20 Urine Turbidity Clear (Clear) 08/17/18 02:20 Urine pH 7.0 (5.0-7.0) 08/17/18 02:20 Ur Specific [place] 1.010 (1.003-1.030) 08/17/18 02:20 Urine Protein <15 mg/dl mg/dL (Negative) 08/17/18 02:20 Urine Glucose (UA) Neg mg/dL (Negative) 08/17/18 02:20 Urine Ketones Neg mg/dL (Negative) 08/17/18 02:20 Urine Blood Sm (Negative) 08/17/18 02:20 Urine Nitrite Neg (Negative) 08/17/18 02:20 Urine Bilirubin Neg (Negative) 08/17/18 02:20 Urine Urobilinogen < 2.0 mg/dL (<2.0) 08/17/18 02:20 Ur Leukocyte Esterase Neg (Negative) 08/17/18 02:20 Urine WBC (Auto) < 1.0 /HPF (0.0-6.0) 08/17/18 02:20 Urine RBC (Auto) < 1.0 /HPF (0.0-6.0) 08/17/18 02:20
--- NOTE | 2018-08-17 13:20 | Consultation ---
History of Present Illness - Reason for Consult Consult date: 08/17/18 Fever and leucopenia Requesting physician: ELENA CARR - History of Present Illness The patient is a 23-year-old male with no significant past medical history, was at his baseline state of health until about a week ago. He then started feeling feverish but continued to go to work. The fever persisted as well as with development of weakness he decided to come to the emergency room. Reports of slight sore throat but no runny nose or cough. Denies any shortness of breath or chest pain. He reported having 2-3 episodes of loose stools 3-4 days ago however has had no bowel movement for the last 3 days. He also had some mild abdominal pain in the mid abdominal region but denies any vomiting or did he denies any previous surgeries or major medical illnesses in the past. Upon evaluation here, the patient was found to have a fever of 102.2F. He had a chest x-ray which was unremarkable. CT scan of the abdomen and pelvis with IV contrast was also unremarkable. Patient was started on empiric IV Zosyn. Patient feels a little better today, still continues to feel weak. Denies any known sick contacts. He works at [employer]. Reports occasional alcohol about once a month, occasional marijuana smoking. Denies any IV drug use. Reports MSM behavior however denies any prior STDs. He has never been tested for HIV or other STDs though. Did not take the flushot. Review of Systems: General: fevers +, no chills or rigors HEENT: no new visual disturbance Respiratory: No cough, sputum, hemoptysis or shortness of breath Cardiovascular: No chest pain, syncope Gastrointestinal: No nausea, vomiting or diarrhea currently Genitourinary: No dysuria or hematuria Musculoskeletal: No new or worsening neck pain or back pain Neurologic: No headaches, seizures Hematologic: No easy bruising or bleeding Endocrine: No night sweats or acute weight loss Skin: negative for rash, jaundice Psychiatric: No suicidal or homicidal ideation Medications and Allergies Allergies Allergy/AdvReac Type Severity Reaction Status Date / Time No Known Allergies Allergy Verified 08/16/18 21:05 Home Medications Medication Instructions Recorded Confirmed Last Taken Type No Known Home Medications [No 08/16/18 08/16/18 Unknown History Reported Home Medications] Active Meds: Active Medications Acetaminophen (Tylenol) 650 mg PO Q4H PRN PRN Reason: Pain MILD(1-3)/Fever >100.5/PINEDA Enoxaparin Sodium (Lovenox) 40 mg SUB-Q QDAY@1000 [facility] Last Admin: 08/17/18 11:28 Dose: 40 mg Sodium Chloride (Nacl 0.9% 1000 Ml) 1,000 mls @ 100 mls/hr IV DIRECT [facility] Last Admin: 08/17/18 13:00 Dose: 100 mls/hr Morphine Sulfate (Morphine) 2 mg IV Q4H PRN PRN Reason: Pain, Moderate (4-6) Ondansetron HCl (Zofran) 4 mg IV Q4H PRN PRN Reason: Nausea And Vomiting Sodium Chloride (Sodium Chloride Flush Syringe 10 Ml) 10 ml IV BID [facility] Last Admin: 08/17/18 11:25 Dose: 10 ml Sodium Chloride (Sodium Chloride Flush Syringe 10 Ml) 10 ml IV PRN PRN PRN Reason: LINE FLUSH Physical Examination - Physical Exam Narrative exam: Physical Exam: Constitutional: Alert, cooperative. No acute distress Head, Ears, Nose: Normocephalic, atraumatic. External ears, nose normal Eyes: Conjunctivae/corneas clear. No icterus. No ptosis. Neck: Supple, no meningeal signs Oral: dentition fair, no thrush Cardiovascular: S1, S2 normal. Respiratory: Good air entry, clear to auscultation bilaterally GI: Soft, non-tender; bowel sounds normal. No peritoneal signs Musculoskeletal: No pedal edema, no cyanosis. Skin: No rash or abscess Hem/Lymphatic: No palpable cervical or supraclavicular nodes. No lymphangitis Psych: Mood ok. Affect normal Neurological: Awake, alert, oriented. No gross abnormality - Constitutional Vitals: Vital Signs Temp Pulse Resp BP Pulse Ox 98.2 F 64 16 73/40 97 08/17/18 02:20 08/17/18 06:33 08/17/18 06:33 08/17/18 06:33 08/17/18 06:33 Temperature -Last 24 Hours Temperature 98.2 F Temperature 102.2 F Results - Labs CBC & Chem 7: 08/17/18 05:16 08/16/18 21:26 Labs: Abnormal lab results 08/16/18 08/16/18 08/16/18 Range/Units 21:26 21:26 21:26 WBC 3.1 L (4.5-11.0) K/mm3 MCV 82 L (84-94) fl MCHC 35 H (32-34) % Lymph % (Auto) 43.3 H (13.4-35.0) % [place] % (Auto) 10.2 H (0.0-7.3) % Lymphocytes % (Manual) (13.4-35.0) % Seg Neutrophils # 1.4 L (1.8-7.7) K/mm3 Seg Neutrophils # Man (1.8-7.7) K/mm3 VBG pH 7.493 H (7.320-7.420) Sodium 132 L (137-145) mmol/L Calcium 7.8 L (8.4-10.2) mg/dL AST 103 H (5-40) units/L Total Protein 6.2 L (6.3-8.2) g/dL Albumin 3.1 L (3.9-5) g/dL 08/17/18 Range/Units 05:16 WBC 2.5 L (4.5-11.0) K/mm3 MCV 83 L (84-94) fl MCHC (32-34) % Lymph % (Auto) (13.4-35.0) % [place] % (Auto) (0.0-7.3) % Lymphocytes % (Manual) 47.0 H (13.4-35.0) % Seg Neutrophils # (1.8-7.7) K/mm3 Seg Neutrophils # Man 1.2 L (1.8-7.7) K/mm3 VBG pH (7.320-7.420) Sodium (137-145) mmol/L Calcium (8.4-10.2) mg/dL AST (5-40) units/L Total Protein (6.3-8.2) g/dL Albumin (3.9-5) g/dL 08/16/2018 blood culture: In process. No growth thus far. - Imaging and Cardiology Chest x-ray: image reviewed (shows no pneumonia.) CT scan - abdomen: image reviewed (no colitis or evidence of intra-abdominal infection.) Assessment and Plan 23-year-old male with no significant past medical history, with ongoing MSM behavior admitted with: 1) Fever of unclear etiology: There is no clinical evidence of an acute bacterial process. Chest x-ray was unremarkable for pneumonia. CT abdomen and pelvis was also unremarkable for infectious process or any other abnormality. CBC does show some leukopenia as well as lymphocytosis, chemistry panel shows mild AST elevation. Suspect viral etiology including EBV mononucleosis, CMV mononucleosis. Given his MSM behavior will also rule out HIV including acute retroviral syndrome and syphilis. 2) Leucopenia: possibly due to viral syndrome. Check EBV, CMV, HIV tests. 3) Mild transaminitis: again, possibly from viral syndrome. Will also check Hepatitis serologies. Recommendations: Follow up blood cultures Discontinued Zosyn We will order a Monospot, EBV and CMV serologies HIV PCR has already been ordered, will follow. However is a send out test and may take a while. Hence, will also order HIV antigen antibody combination RPR ordered Hepatitis panel ordered Since he has not had any BM for the last 3 days, will discontinue stool studies Plan discussed with MD Mindy [facility] C: [phone] O: [phone]
[2018-08-17] MEDS ORDERED: MIRALAX 3350 PO PRN (13:59)
[2018-08-17 16:21] LABS: Hepatitis B Core IgM Indeterminate (NonReactive); Hepatitis B Surface Antigen Non-Reactive (Negative); Hepatitis C Virus Antibody Non-Reactive (NonReactive)
[2018-08-18] MEDS: NACL 0.9% 1000 ML 1,000 ML IV SCH ×2 (05:39→18:00)
[2018-08-18 06:55] LABS: BUN/Creatinine Ratio 7; Blood Urea Nitrogen 6 mg/dL (9-20); Calcium 8.3 mg/dL (8.4-10.2); Hemolysis Index 5
[2018-08-18] MEDS: LOVENOX SUB-Q SCH (10:58)
[2018-08-18] MEDS: SODIUM CHLORIDE FLUSH SYRINGE 10 ML IV SCH ×2 (11:01→21:48)
--- NOTE | 2018-08-18 16:53 | Progress Note ---
Assessment and Plan Assessment and plan: Patient is a 23 yo man with a history of tobacco dependency who presented to [facility] ED with fevers. * CT abd/pelvis with contrast IMPRESSION: Normal examination of the abdomen and pelvis. No mass or obstruction. Contracted gallbladder * CT head wo contrast IMPRESSION: Normal Examination * pCXR IMPRESSION: No acute cardiopulmonary abnormality. SIRs without evidence of source of infection: HIV pending, pt agrees to testing , risk factor being homosexual activity. Hyponatremia, dehydration, hypovolemia: treat with IVF Hypotension with dehydration: give iv fluid bolus Constipation, he refuses suppository, and enema: chief counsel on compliance d/c once afebrile, he refuses to allow us to exam his rectum or give him a suppository or enema. Mother at bedside, just found out patient sexual orientation from patient. I ordered rapid HIV test. Await results History Interval history: Patient was seen and examined. Follow-up on current diagnosis of fevers. Overnight uneventful. Patient denies any chest pain, shortness breath, nausea/ vomiting or severe headaches. Imaging, nursing note, chart, labs and old chart reviewed. Discussed with patient. Hospitalist Physical - Physical exam Narrative exam: GEN: WDWN, NAD, Awake, Alert, Orientated x 3 HEENT: NCAT, EOMI, PERRL, OP Clear NECK: supple, no adenopathy, no thyromegaly, no JVD CVS/HEART: RRR, normal S1S2, pulses present bilaterally CHEST/LUNGS: CTA B, Symmetrical chest expansion, good air entry bilaterally GI/Abdomen: soft, NTND, good bowel sounds, no guarding or rebound /Bladder: no suprapubic tenderness, no CVA or paraspinal tenderness EXT/Skin: no c/c/e, no obvious rash MSK: FROM x 4 Neuro: CN 2-12 grossly intact, no new focal deficits Psych: calm - Constitutional Vitals: Temp Pulse Resp BP Pulse Ox 97.6 F 61 16 94/60 98 08/18/18 12:11 08/18/18 12:11 08/18/18 12:11 08/18/18 12:11 08/18/18 12:11 Results - Labs CBC & Chem 7: 08/17/18 05:16 08/18/18 05:50 Labs: Laboratory Last Values WBC 2.5 K/mm3 (4.5-11.0) L 08/17/18 05:16 RBC 4.93 M/mm3 (3.65-5.03) 08/17/18 05:16 Hgb 13.7 gm/dl (11.8-15.2) 08/17/18 05:16 Hct 40.7 % (35.5-45.6) 08/17/18 05:16 MCV 83 fl (84-94) L 08/17/18 05:16 MCH 28 pg (28-32) 08/17/18 05:16 MCHC 34 % (32-34) 08/17/18 05:16 RDW 13.4 % (13.2-15.2) 08/17/18 05:16 Plt Count 159 K/mm3 (140-440) 08/17/18 05:16 Lymph % (Auto) 43.3 % (13.4-35.0) H 08/16/18 21:26 [place] % (Auto) 10.2 % (0.0-7.3) H 08/16/18 21:26 Eos % (Auto) 0.0 % (0.0-4.3) 08/16/18 21:26 Baso % (Auto) 0.7 % (0.0-1.8) 08/16/18 21:26 Lymph # 1.3 K/mm3 (1.2-5.4) 08/16/18 21:26 [place] # 0.3 K/mm3 (0.0-0.8) 08/16/18 21:26 Eos # 0.0 K/mm3 (0.0-0.4) 08/16/18 21:26 Baso # 0.0 K/mm3 (0.0-0.1) 08/16/18 21:26 Add Manual Diff Complete 08/17/18 05:16 Total Counted 100 08/17/18 05:16 Seg Neutrophils % Loan [employer]eller 08/17/18 05:16 Seg Neuts % (Manual) 46.0 % (40.0-70.0) 08/17/18 05:16 Band Neutrophils % 0 % 08/17/18 05:16 Lymphocytes % (Manual) 47.0 % (13.4-35.0) H 08/17/18 05:16 Reactive Lymphs % (Man) 0 % 08/17/18 05:16 Monocytes % (Manual) 7.0 % (0.0-7.3) 08/17/18 05:16 Eosinophils % (Manual) 0 % (0.0-4.3) 08/17/18 05:16 Basophils % (Manual) 0 % (0.0-1.8) 08/17/18 05:16 Metamyelocytes % 0 % 08/17/18 05:16 Myelocytes % 0 % 08/17/18 05:16 Promyelocytes % 0 % 08/17/18 05:16 Blast Cells % 0 % 08/17/18 05:16 Nucleated RBC % Not Reportable 08/17/18 05:16 Seg Neutrophils # 1.4 K/mm3 (1.8-7.7) L 08/16/18 21:26 Seg Neutrophils # Man 1.2 K/mm3 (1.8-7.7) L 08/17/18 05:16 Band Neutrophils # 0.0 K/mm3 08/17/18 05:16 Lymphocytes # (Manual) 1.2 K/mm3 (1.2-5.4) 08/17/18 05:16 Abs React Lymphs (Man) 0.0 K/mm3 08/17/18 05:16 Monocytes # (Manual) 0.2 K/mm3 (0.0-0.8) 08/17/18 05:16 Eosinophils # (Manual) 0.0 K/mm3 (0.0-0.4) 08/17/18 05:16 Basophils # (Manual) 0.0 K/mm3 (0.0-0.1) 08/17/18 05:16 Metamyelocytes # 0.0 K/mm3 08/17/18 05:16 Myelocytes # 0.0 K/mm3 08/17/18 05:16 Promyelocytes # 0.0 K/mm3 08/17/18 05:16 Blast Cells # 0.0 K/mm3 08/17/18 05:16 WBC Morphology Not Reportable 08/17/18 05:16 Hypersegmented Neuts Not Reportable 08/17/18 05:16 Hyposegmented Neuts Not Reportable 08/17/18 05:16 Hypogranular Neuts Not Reportable 08/17/18 05:16 Smudge Cells Not Reportable 08/17/18 05:16 Toxic Granulation Not Reportable 08/17/18 05:16 Toxic Vacuolation Not Reportable 08/17/18 05:16 Dohle Bodies Not Reportable 08/17/18 05:16 Pelger-Huet Anomaly Not Reportable 08/17/18 05:16 [place] Rods Not Reportable 08/17/18 05:16 Platelet Estimate Consistent w auto 08/17/18 05:16 Clumped Platelets Not Reportable 08/17/18 05:16 Plt Clumps, EDTA Not Reportable 08/17/18 05:16 Large Platelets Not Reportable 08/17/18 05:16 Giant Platelets Not Reportable 08/17/18 05:16 Platelet Satelliting Not Reportable 08/17/18 05:16 Plt Morphology Comment Not Reportable 08/17/18 05:16 RBC Morphology Not Reportable 08/17/18 05:16 Dimorphic RBCs Not Reportable 08/17/18 05:16 Polychromasia Not Reportable 08/17/18 05:16 Hypochromasia Not Reportable 08/17/18 05:16 Poikilocytosis Not Reportable 08/17/18 05:16 Anisocytosis Few 08/17/18 05:16 Microcytosis Not Reportable 08/17/18 05:16 Macrocytosis Not Reportable 08/17/18 05:16 Spherocytes Not Reportable 08/17/18 05:16 Pappenheimer Bodies Not Reportable 08/17/18 05:16 Sickle Cells Not Reportable 08/17/18 05:16 Target Cells Not Reportable 08/17/18 05:16 Tear Drop Cells Not Reportable 08/17/18 05:16 Ovalocytes Not Reportable 08/17/18 05:16 Helmet Cells Not Reportable 08/17/18 05:16 [place] Bodies Not Reportable 08/17/18 05:16 [place] Rings Not Reportable 08/17/18 05:16 [place] Cells Not Reportable 08/17/18 05:16 Bite Cells Not Reportable 08/17/18 05:16 Crenated Cell Not Reportable 08/17/18 05:16 Elliptocytes Not Reportable 08/17/18 05:16 Acanthocytes (Spur) Not Reportable 08/17/18 05:16 Rouleaux Not Reportable 08/17/18 05:16 Hemoglobin C Crystals Not Reportable 08/17/18 05:16 Schistocytes Not Reportable 08/17/18 05:16 Malaria parasites Not Reportable 08/17/18 05:16 Hernán Bodies Not Reportable 08/17/18 05:16 Hem Pathologist Commnt No 08/17/18 05:16 PT 13.6 Sec. (12.2-14.9) 08/16/18 21:26 INR 0.99 (0.87-1.13) 08/16/18 21:26 VBG pH 7.493 (7.320-7.420) H 08/16/18 21:26 Sodium 141 mmol/L (137-145) D 08/18/18 05:50 Potassium 4.3 mmol/L (3.6-5.0) 08/18/18 05:50 Chloride 105.6 mmol/L (98-107) 08/18/18 05:50 Carbon Dioxide 24 mmol/L (22-30) 08/18/18 05:50 Anion Gap 16 mmol/L 08/18/18 05:50 BUN 6 mg/dL (9-20) L 08/18/18 05:50 Creatinine 0.9 mg/dL (0.8-1.5) 08/18/18 05:50 Estimated GFR > 60 ml/min 08/18/18 05:50 BUN/Creatinine Ratio 7 % 08/18/18 05:50 Glucose 92 mg/dL (75-100) 08/18/18 05:50 Lactic Acid 0.80 mmol/L (0.7-2.0) 08/17/18 00:34 Calcium 8.3 mg/dL (8.4-10.2) L 08/18/18 05:50 Total Bilirubin 0.30 mg/dL (0.1-1.2) 08/16/18 21:26 AST 103 units/L (5-40) H 08/16/18 21:26 ALT 53 units/L (7-56) 08/16/18 21:26 Alkaline Phosphatase 55 units/L (35-129) 08/16/18 21:26 Total Protein 6.2 g/dL (6.3-8.2) L 08/16/18 21:26 Albumin 3.1 g/dL (3.9-5) L 08/16/18 21:26 Albumin/Globulin Ratio 1.0 % 08/16/18 21:26 Lipase 35 units/L (13-60) 08/16/18 21:26 Urine Color Straw (Yellow) 08/17/18 02:20 Urine Turbidity Clear (Clear) 08/17/18 02:20 Urine pH 7.0 (5.0-7.0) 08/17/18 02:20 Ur Specific [place] 1.010 (1.003-1.030) 08/17/18 02:20 Urine Protein <15 mg/dl mg/dL (Negative) 08/17/18 02:20 Urine Glucose (UA) Neg mg/dL (Negative) 08/17/18 02:20 Urine Ketones Neg mg/dL (Negative) 08/17/18 02:20 Urine Blood Sm (Negative) 08/17/18 02:20 Urine Nitrite Neg (Negative) 08/17/18 02:20 Urine Bilirubin Neg (Negative) 08/17/18 02:20 Urine Urobilinogen < 2.0 mg/dL (<2.0) 08/17/18 02:20 Ur Leukocyte Esterase Neg (Negative) 08/17/18 02:20 Urine WBC (Auto) < 1.0 /HPF (0.0-6.0) 08/17/18 02:20 Urine RBC (Auto) < 1.0 /HPF (0.0-6.0) 08/17/18 02:20 RPR Titer 1:8 08/17/18 12:52 RPR Reactive (Nonreactive) 08/17/18 12:52 Hep Bs Antigen Non-reactive (Negative) 08/17/18 15:30 Hep B Core IgM Ab Indeterminate (NonReactive) 08/17/18 15:30 Hepatitis C Antibody Non-reactive (NonReactive) 08/17/18 15:30 Monoscreen Negative (Negative) 08/17/18 12:52 HIV 1&2 Antibody Rapid Non react (Non React) 08/18/18 10:34 HIV P24 Antigen React (Non React) 08/18/18 10:34
[2018-08-18] MEDS ORDERED: BICILLIN L-A IM ONE (18:00)
[2018-08-19] MEDS: NACL 0.9% 1000 ML 1,000 ML IV SCH ×3 (00:43→17:04)
[2018-08-19] MEDS: SODIUM CHLORIDE FLUSH SYRINGE 10 ML IV SCH ×2 (09:45→22:39)
[2018-08-19] MEDS: LOVENOX SUB-Q SCH (09:52)
--- NOTE | 2018-08-19 11:40 | Discharge Summary ---
Providers - Providers Date of Admission: 08/17/18 02:13 Date of discharge: 08/20/18 Attending physician: ELENA CARR 08/17/18 04:49 Consult to Physician [CONS] Routine Comment: Consulting Provider: YAN SPAIN Physician Instructions: Reason For Exam: fever Primary care physician: VIDEO RECORDER MECHANIC Hospitalization Condition: Stable Hospital course: Patient is a 23 yo man with a history of tobacco dependency who presented to [facility] ED with fevers. CT abd/pelvis with contrast IMPRESSION: Normal examination of the abdomen and pelvis. No mass or obstruction. Contracted gallbladder CT head wo contrast IMPRESSION: Normal Examination pCXR IMPRESSION: No acute cardiopulmonary abnormality. HIV newly diagnosis, antigen positive but anti negative, so acute infection most likely. SIRs without evidence of source of infection related to HIV acute infection Hyponatremia, dehydration, hypovolemia: treat with IVF Hypotension with dehydration: give iv fluid bolus Constipation, resolved Syphilis: treated with PCN G 2.4 million unit IM x 2/3 Disposition: IN-01 TO HOME OR SELFCARE Time spent for discharge: 31 min Core Measure Documentation - Palliative Care Palliative Care/ Comfort Measures: Not Applicable - Core Measures Any of the following diagnoses?: none - VTE Discharge Requirements Deep Vein Thrombosis/Pulmonary Embolism Present on Admission: No Has pt received <5 days of overlap therapy or INR<2.0: No Anticoagulant overlap therapy prescribed at discharge: No Contraindication No Overlap Therapy order at DC: Not Indicated Exam - Physical Exam Narrative exam: GEN: WDWN, NAD, Awake, Alert, Orientated x 3 HEENT: NCAT, EOMI, PERRL, OP Clear NECK: supple, no adenopathy, no thyromegaly, no JVD CVS/HEART: RRR, normal S1S2, pulses present bilaterally CHEST/LUNGS: CTA B, Symmetrical chest expansion, good air entry bilaterally GI/Abdomen: soft, NTND, good bowel sounds, no guarding or rebound /Bladder: no suprapubic tenderness, no CVA or paraspinal tenderness EXT/Skin: no c/c/e, no obvious rash MSK: FROM x 4 Neuro: CN 2-12 grossly intact, no new focal deficits Psych: calm - Constitutional Vitals: Temp Pulse Resp BP Pulse Ox 97.9 F 52 L 17 98/50 100 08/19/18 05:48 08/19/18 05:48 08/19/18 05:48 08/19/18 05:48 08/19/18 05:48 Plan Activity: other (no strenous activity until cleared by ID) Diet: clear liquids (advance as tolerates) Additional Instructions: 1) Make an appointment as soon as possible with. [facility]. [address] [place] [address]. [phone]. 2) You need another 1 dose of Penicillin G 2.4 unit at the [facility] Follow up with: NOA GARCIA MD [Primary Care Provider] - 3-5 Days ANNEMARIE BECKHAM MD [Staff Physician] - 7 Days Forms: Work/School Release Form
--- NOTE | 2018-08-19 12:44 | Progress Note ---
Assessment and Plan 23-year-old male with no significant past medical history, with ongoing MSM behavior admitted with: 1) Fever, possibly from HIV acute retroviral syndrome: Monospot came back negative. Fever has resolved. HIV rapid antibody came back negative but p24 Ag came back reactive, suggesting Acute retroviral syndrome. Discussed diagnosis with patient, risk factor is MSM behavior. Will need outpatient HIV clinic follow up, patient is new to the area, discussed with his mother on the phone, who is very concerned about patient being 23 and new to the area and uninsured and may need some assistance signing up for insurance, etc. Hence, will consult SW. 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 No concern for neurosyphilis. 3) Mild transaminitis: again, possibly from viral syndrome. Hepatitis panel unremarkable. Recommendations: - agree with Benzathin PCN 2.4 million units IM, but recommend total 3 doses weekly (last 2 doses can be given at HIV clinic) - continue off abx - Quarter Trimmer Consult placed - follow up with [facility] HIV clinic at [place] Plan discussed with Dr. Brasher. Also discussed with patient's mother on the phone per patient's request while in the room and at patient's bedside. Marie Hoover MD [facility] C: [phone] O: [phone] Subjective Date of service: 08/19/18 Principal diagnosis: Fever Interval history: No fever. Still feeling weak. No nausea, vomiting. No cough or SOB. Monospot came back negative. RPR positive at 1:8, HIV p24 Ag came back positive. Objective - Exam Narrative Exam: Physical Exam: Constitutional: Alert, cooperative. No acute distress Head, Ears, Nose: Normocephalic, atraumatic. External ears, nose normal Eyes: Conjunctivae/corneas clear. No icterus. No ptosis. Neck: Supple, no meningeal signs Cardiovascular: S1, S2 normal. Respiratory: Good air entry, clear to auscultation bilaterally GI: Soft, non-tender; bowel sounds normal. No peritoneal signs Musculoskeletal: No pedal edema, no cyanosis. Skin: No rash or abscess Hem/Lymphatic: No palpable cervical or supraclavicular nodes. Psych: Mood ok. Affect normal Neurological: Awake, alert, oriented. No gross abnormality - Constitutional Vitals: Vital Signs Temp Pulse Resp BP Pulse Ox 98.3 F 58 L 18 95/56 99 08/19/18 11:58 08/19/18 11:58 08/19/18 11:58 08/19/18 11:58 08/19/18 11:58 Temperature -Last 24 Hours Temperature 98.3 F Temperature 97.9 F Temperature 98.1 F Temperature 99.2 F - Labs CBC & Chem 7: 08/17/18 05:16 08/18/18 05:50
--- NOTE | 2018-08-19 12:49 | Progress Note ---
Assessment and Plan Assessment and plan: Patient is a 23 yo man with a history of tobacco dependency who presented to [facility] ED with fevers. * CT abd/pelvis with contrast IMPRESSION: Normal examination of the abdomen and pelvis. No mass or obstruction. Contracted gallbladder * CT head wo contrast IMPRESSION: Normal Examination * pCXR IMPRESSION: No acute cardiopulmonary abnormality. HIV antigen positive but anti negative, so acute infection most likely. SIRs without evidence of source of infection: HIV pending, pt agrees to testing , risk factor being homosexual activity. Hyponatremia, dehydration, hypovolemia: treat with IVF Hypotension with dehydration: give iv fluid bolus Constipation, he refuses suppository, and enema: genetic counselor on compliance Anticipate discharge tomorrow. Consulted Case management, they are not available (staff member had an emergency) History Interval history: Patient was seen and examined. Follow-up on current diagnosis of fevers. Overnight uneventful. Patient denies any chest pain, shortness breath, nausea/ vomiting or severe headaches. Imaging, nursing note, chart, labs and old chart reviewed. Discussed with patient. Hospitalist Physical - Physical exam Narrative exam: GEN: WDWN, NAD, Awake, Alert, Orientated x 3 HEENT: NCAT, EOMI, PERRL, OP Clear NECK: supple, no adenopathy, no thyromegaly, no JVD CVS/HEART: RRR, normal S1S2, pulses present bilaterally CHEST/LUNGS: CTA B, Symmetrical chest expansion, good air entry bilaterally GI/Abdomen: soft, NTND, good bowel sounds, no guarding or rebound /Bladder: no suprapubic tenderness, no CVA or paraspinal tenderness EXT/Skin: no c/c/e, no obvious rash MSK: FROM x 4 Neuro: CN 2-12 grossly intact, no new focal deficits Psych: calm - Constitutional Vitals: Temp Pulse Resp BP Pulse Ox 98.3 F 58 L 18 95/56 99 08/19/18 11:58 08/19/18 11:58 08/19/18 11:58 08/19/18 11:58 08/19/18 11:58 Results - Labs CBC & Chem 7: 08/17/18 05:16 08/18/18 05:50 Labs: Laboratory Last Values WBC 2.5 K/mm3 (4.5-11.0) L 08/17/18 05:16 RBC 4.93 M/mm3 (3.65-5.03) 08/17/18 05:16 Hgb 13.7 gm/dl (11.8-15.2) 08/17/18 05:16 Hct 40.7 % (35.5-45.6) 08/17/18 05:16 MCV 83 fl (84-94) L 08/17/18 05:16 MCH 28 pg (28-32) 08/17/18 05:16 MCHC 34 % (32-34) 08/17/18 05:16 RDW 13.4 % (13.2-15.2) 08/17/18 05:16 Plt Count 159 K/mm3 (140-440) 08/17/18 05:16 Lymph % (Auto) 43.3 % (13.4-35.0) H 08/16/18 21:26 [place] % (Auto) 10.2 % (0.0-7.3) H 08/16/18 21:26 Eos % (Auto) 0.0 % (0.0-4.3) 08/16/18 21:26 Baso % (Auto) 0.7 % (0.0-1.8) 08/16/18 21:26 Lymph # 1.3 K/mm3 (1.2-5.4) 08/16/18 21:26 [place] # 0.3 K/mm3 (0.0-0.8) 08/16/18 21:26 Eos # 0.0 K/mm3 (0.0-0.4) 08/16/18 21:26 Baso # 0.0 K/mm3 (0.0-0.1) 08/16/18 21:26 Add Manual Diff Complete 08/17/18 05:16 Total Counted 100 08/17/18 05:16 Seg Neutrophils % Tile Ditcher 08/17/18 05:16 Seg Neuts % (Manual) 46.0 % (40.0-70.0) 08/17/18 05:16 Band Neutrophils % 0 % 08/17/18 05:16 Lymphocytes % (Manual) 47.0 % (13.4-35.0) H 08/17/18 05:16 Reactive Lymphs % (Man) 0 % 08/17/18 05:16 Monocytes % (Manual) 7.0 % (0.0-7.3) 08/17/18 05:16 Eosinophils % (Manual) 0 % (0.0-4.3) 08/17/18 05:16 Basophils % (Manual) 0 % (0.0-1.8) 08/17/18 05:16 Metamyelocytes % 0 % 08/17/18 05:16 Myelocytes % 0 % 08/17/18 05:16 Promyelocytes % 0 % 08/17/18 05:16 Blast Cells % 0 % 08/17/18 05:16 Nucleated RBC % Not Reportable 08/17/18 05:16 Seg Neutrophils # 1.4 K/mm3 (1.8-7.7) L 08/16/18 21:26 Seg Neutrophils # Man 1.2 K/mm3 (1.8-7.7) L 08/17/18 05:16 Band Neutrophils # 0.0 K/mm3 08/17/18 05:16 Lymphocytes # (Manual) 1.2 K/mm3 (1.2-5.4) 08/17/18 05:16 Abs React Lymphs (Man) 0.0 K/mm3 08/17/18 05:16 Monocytes # (Manual) 0.2 K/mm3 (0.0-0.8) 08/17/18 05:16 Eosinophils # (Manual) 0.0 K/mm3 (0.0-0.4) 08/17/18 05:16 Basophils # (Manual) 0.0 K/mm3 (0.0-0.1) 08/17/18 05:16 Metamyelocytes # 0.0 K/mm3 08/17/18 05:16 Myelocytes # 0.0 K/mm3 08/17/18 05:16 Promyelocytes # 0.0 K/mm3 08/17/18 05:16 Blast Cells # 0.0 K/mm3 08/17/18 05:16 WBC Morphology Not Reportable 08/17/18 05:16 Hypersegmented Neuts Not Reportable 08/17/18 05:16 Hyposegmented Neuts Not Reportable 08/17/18 05:16 Hypogranular Neuts Not Reportable 08/17/18 05:16 Smudge Cells Not Reportable 08/17/18 05:16 Toxic Granulation Not Reportable 08/17/18 05:16 Toxic Vacuolation Not Reportable 08/17/18 05:16 Dohle Bodies Not Reportable 08/17/18 05:16 Pelger-Huet Anomaly Not Reportable 08/17/18 05:16 Sidney Rods Not Reportable 08/17/18 05:16 Platelet Estimate Consistent w auto 08/17/18 05:16 Clumped Platelets Not Reportable 08/17/18 05:16 Plt Clumps, EDTA Not Reportable 08/17/18 05:16 Large Platelets Not Reportable 08/17/18 05:16 Giant Platelets Not Reportable 08/17/18 05:16 Platelet Satelliting Not Reportable 08/17/18 05:16 Plt Morphology Comment Not Reportable 08/17/18 05:16 RBC Morphology Not Reportable 08/17/18 05:16 Dimorphic RBCs Not Reportable 08/17/18 05:16 Polychromasia Not Reportable 08/17/18 05:16 Hypochromasia Not Reportable 08/17/18 05:16 Poikilocytosis Not Reportable 08/17/18 05:16 Anisocytosis Few 08/17/18 05:16 Microcytosis Not Reportable 08/17/18 05:16 Macrocytosis Not Reportable 08/17/18 05:16 Spherocytes Not Reportable 08/17/18 05:16 Pappenheimer Bodies Not Reportable 08/17/18 05:16 Sickle Cells Not Reportable 08/17/18 05:16 Target Cells Not Reportable 08/17/18 05:16 Tear Drop Cells Not Reportable 08/17/18 05:16 Ovalocytes Not Reportable 08/17/18 05:16 Helmet Cells Not Reportable 08/17/18 05:16 [place] Bodies Not Reportable 08/17/18 05:16 Galt Rings Not Reportable 08/17/18 05:16 Mcallen Cells Not Reportable 08/17/18 05:16 Bite Cells Not Reportable 08/17/18 05:16 Crenated Cell Not Reportable 08/17/18 05:16 Elliptocytes Not Reportable 08/17/18 05:16 Acanthocytes (Spur) Not Reportable 08/17/18 05:16 Rouleaux Not Reportable 08/17/18 05:16 Hemoglobin C Crystals Not Reportable 08/17/18 05:16 Schistocytes Not Reportable 08/17/18 05:16 Malaria parasites Not Reportable 08/17/18 05:16 Hernán Bodies Not Reportable 08/17/18 05:16 Hem Pathologist Commnt No 08/17/18 05:16 PT 13.6 Sec. (12.2-14.9) 08/16/18 21:26 INR 0.99 (0.87-1.13) 08/16/18 21:26 VBG pH 7.493 (7.320-7.420) H 08/16/18 21:26 Sodium 141 mmol/L (137-145) D 08/18/18 05:50 Potassium 4.3 mmol/L (3.6-5.0) 08/18/18 05:50 Chloride 105.6 mmol/L (98-107) 08/18/18 05:50 Carbon Dioxide 24 mmol/L (22-30) 08/18/18 05:50 Anion Gap 16 mmol/L 08/18/18 05:50 BUN 6 mg/dL (9-20) L 08/18/18 05:50 Creatinine 0.9 mg/dL (0.8-1.5) 08/18/18 05:50 Estimated GFR > 60 ml/min 08/18/18 05:50 BUN/Creatinine Ratio 7 % 08/18/18 05:50 Glucose 92 mg/dL (75-100) 08/18/18 05:50 Lactic Acid 0.80 mmol/L (0.7-2.0) 08/17/18 00:34 Calcium 8.3 mg/dL (8.4-10.2) L 08/18/18 05:50 Total Bilirubin 0.30 mg/dL (0.1-1.2) 08/16/18 21:26 AST 103 units/L (5-40) H 08/16/18 21:26 ALT 53 units/L (7-56) 08/16/18 21:26 Alkaline Phosphatase 55 units/L (35-129) 08/16/18 21:26 Total Protein 6.2 g/dL (6.3-8.2) L 08/16/18 21:26 Albumin 3.1 g/dL (3.9-5) L 08/16/18 21:26 Albumin/Globulin Ratio 1.0 % 08/16/18 21:26 Lipase 35 units/L (13-60) 08/16/18 21:26 Urine Color Straw (Yellow) 08/17/18 02:20 Urine Turbidity Clear (Clear) 08/17/18 02:20 Urine pH 7.0 (5.0-7.0) 08/17/18 02:20 Ur Specific Deposit 1.010 (1.003-1.030) 08/17/18 02:20 Urine Protein <15 mg/dl mg/dL (Negative) 08/17/18 02:20 Urine Glucose (UA) Neg mg/dL (Negative) 08/17/18 02:20 Urine Ketones Neg mg/dL (Negative) 08/17/18 02:20 Urine Blood Sm (Negative) 08/17/18 02:20 Urine Nitrite Neg (Negative) 08/17/18 02:20 Urine Bilirubin Neg (Negative) 08/17/18 02:20 Urine Urobilinogen < 2.0 mg/dL (<2.0) 08/17/18 02:20 Ur Leukocyte Esterase Neg (Negative) 08/17/18 02:20 Urine WBC (Auto) < 1.0 /HPF (0.0-6.0) 08/17/18 02:20 Urine RBC (Auto) < 1.0 /HPF (0.0-6.0) 08/17/18 02:20 RPR Titer 1:8 08/17/18 12:52 RPR Reactive (Nonreactive) 08/17/18 12:52 Hep Bs Antigen Non-reactive (Negative) 08/17/18 15:30 Hep B Core IgM Ab Indeterminate (NonReactive) 08/17/18 15:30 Hepatitis C Antibody Non-reactive (NonReactive) 08/17/18 15:30 Monoscreen Negative (Negative) 08/17/18 12:52 HIV 1&2 Antibody Rapid Non react (Non React) 08/18/18 10:34 HIV P24 Antigen React (Non React) 08/18/18 10:34
[2018-08-20] MEDS: NACL 0.9% 1000 ML 1,000 ML IV SCH (03:37)
[2018-08-20] MEDS: LOVENOX SUB-Q SCH (09:42)
[2018-08-20] MEDS: SODIUM CHLORIDE FLUSH SYRINGE 10 ML IV SCH (09:43)
--- NOTE | 2018-08-20 10:57 | Progress Note ---
Assessment and Plan 23-year-old male with no significant past medical history, with ongoing MSM behavior admitted with: 1) Fever, possibly from HIV acute retroviral syndrome: Monospot came back negative. Fever has resolved. HIV rapid antibody came back negative but p24 Ag came back reactive, suggesting Acute retroviral syndrome. Discussed diagnosis with patient, risk factor is MSM behavior. Will follow up with [facility] HIV clinic at [place]. 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 No concern for neurosyphilis. 3) Mild transaminitis: again, possibly from viral syndrome. Hepatitis panel unremarkable. Recommendations: - s/p Benzathin PCN 2.4 million units IM, but recommend total 3 doses weekly ( last 2 doses can be given at HIV clinic) - follow up with [facility] HIV clinic at [place] Plan discussed with Case Management and patient, he verbalized understanding. Will sign off. Please call with questions. Marie Hoover MD [facility] C: [phone] O: [phone] Subjective Date of service: 08/20/18 Principal diagnosis: Fever Interval history: Denies any fever, just a few low grade 99F temperatures. Feeling well, still a little weak. No nausea, vomiting. No rash. Discussed with him about his HIV clinic follow up. Objective - Exam Narrative Exam: Physical Exam: Constitutional: Alert, cooperative. No acute distress Head, Ears, Nose: Normocephalic, atraumatic. External ears, nose normal Eyes: Conjunctivae/corneas clear. No icterus. No ptosis. Neck: Supple, no meningeal signs Cardiovascular: S1, S2 normal, no murmur. Respiratory: Good air entry, clear to auscultation bilaterally GI: Soft, non-tender; bowel sounds normal. No peritoneal signs Musculoskeletal: No pedal edema, no cyanosis. Skin: No rash or abscess Hem/Lymphatic: No palpable cervical or supraclavicular nodes. Psych: Mood ok. Affect normal Neurological: Awake, alert, oriented. No gross abnormality - Constitutional Vitals: Vital Signs Temp Pulse Resp BP Pulse Ox 99.0 F 85 20 92/69 98 08/20/18 05:07 08/20/18 08:38 08/20/18 08:38 08/20/18 05:07 08/20/18 08:33 Temperature -Last 24 Hours Temperature 99.0 F Temperature 99.0 F Temperature 98.8 F Temperature 98.3 F - Labs CBC & Chem 7: 08/17/18 05:16 08/18/18 05:50
--- NOTE | 2018-08-20 11:11 | Progress Note ---
Assessment and Plan Assessment and plan: Patient is a 23 yo man with a history of tobacco dependency who presented to [facility] ED with fevers. * CT abd/pelvis with contrast IMPRESSION: Normal examination of the abdomen and pelvis. No mass or obstruction. Contracted gallbladder * CT head wo contrast IMPRESSION: Normal Examination * pCXR IMPRESSION: No acute cardiopulmonary abnormality. HIV newly diagnosis, antigen positive but anti negative, so acute infection most likely. SIRs without evidence of source of infection: HIV pending, pt agrees to testing , risk factor being homosexual activity. Hyponatremia, dehydration, hypovolemia: treat with IVF Hypotension with dehydration: give iv fluid bolus Constipation, he refuses suppository, and enema: group home counselor on compliance Syphilis: treated with PCN G 2.4 million unit IM x 1 History Interval history: Patient was seen and examined. Follow-up on current diagnosis of fevers. Overnight uneventful. Patient denies any chest pain, shortness breath, nausea/ vomiting or severe headaches. Imaging, nursing note, chart, labs and old chart reviewed. Discussed with patient. Hospitalist Physical - Physical exam Narrative exam: GEN: WDWN, NAD, Awake, Alert, Orientated x 3 HEENT: NCAT, EOMI, PERRL, OP Clear NECK: supple, no adenopathy, no thyromegaly, no JVD CVS/HEART: RRR, normal S1S2, pulses present bilaterally CHEST/LUNGS: CTA B, Symmetrical chest expansion, good air entry bilaterally GI/Abdomen: soft, NTND, good bowel sounds, no guarding or rebound /Bladder: no suprapubic tenderness, no CVA or paraspinal tenderness EXT/Skin: no c/c/e, no obvious rash MSK: FROM x 4 Neuro: CN 2-12 grossly intact, no new focal deficits Psych: calm - Constitutional Vitals: Temp Pulse Resp BP Pulse Ox 99.0 F 85 20 92/69 98 08/20/18 05:07 08/20/18 08:38 08/20/18 08:38 08/20/18 05:07 08/20/18 08:33 Results - Labs CBC & Chem 7: 08/17/18 05:16 08/18/18 05:50 Labs: Laboratory Last Values WBC 2.5 K/mm3 (4.5-11.0) L 08/17/18 05:16 RBC 4.93 M/mm3 (3.65-5.03) 08/17/18 05:16 Hgb 13.7 gm/dl (11.8-15.2) 08/17/18 05:16 Hct 40.7 % (35.5-45.6) 08/17/18 05:16 MCV 83 fl (84-94) L 08/17/18 05:16 MCH 28 pg (28-32) 08/17/18 05:16 MCHC 34 % (32-34) 08/17/18 05:16 RDW 13.4 % (13.2-15.2) 08/17/18 05:16 Plt Count 159 K/mm3 (140-440) 08/17/18 05:16 Lymph % (Auto) 43.3 % (13.4-35.0) H 08/16/18 21:26 [place] % (Auto) 10.2 % (0.0-7.3) H 08/16/18 21:26 Eos % (Auto) 0.0 % (0.0-4.3) 08/16/18 21:26 Baso % (Auto) 0.7 % (0.0-1.8) 08/16/18 21:26 Lymph # 1.3 K/mm3 (1.2-5.4) 08/16/18 21:26 [place] # 0.3 K/mm3 (0.0-0.8) 08/16/18 21:26 Eos # 0.0 K/mm3 (0.0-0.4) 08/16/18 21:26 Baso # 0.0 K/mm3 (0.0-0.1) 08/16/18 21:26 Add Manual Diff Complete 08/17/18 05:16 Total Counted 100 08/17/18 05:16 Seg Neutrophils % Production Stage Manager 08/17/18 05:16 Seg Neuts % (Manual) 46.0 % (40.0-70.0) 08/17/18 05:16 Band Neutrophils % 0 % 08/17/18 05:16 Lymphocytes % (Manual) 47.0 % (13.4-35.0) H 08/17/18 05:16 Reactive Lymphs % (Man) 0 % 08/17/18 05:16 Monocytes % (Manual) 7.0 % (0.0-7.3) 08/17/18 05:16 Eosinophils % (Manual) 0 % (0.0-4.3) 08/17/18 05:16 Basophils % (Manual) 0 % (0.0-1.8) 08/17/18 05:16 Metamyelocytes % 0 % 08/17/18 05:16 Myelocytes % 0 % 08/17/18 05:16 Promyelocytes % 0 % 08/17/18 05:16 Blast Cells % 0 % 08/17/18 05:16 Nucleated RBC % Not Reportable 08/17/18 05:16 Seg Neutrophils # 1.4 K/mm3 (1.8-7.7) L 08/16/18 21:26 Seg Neutrophils # Man 1.2 K/mm3 (1.8-7.7) L 08/17/18 05:16 Band Neutrophils # 0.0 K/mm3 08/17/18 05:16 Lymphocytes # (Manual) 1.2 K/mm3 (1.2-5.4) 08/17/18 05:16 Abs React Lymphs (Man) 0.0 K/mm3 08/17/18 05:16 Monocytes # (Manual) 0.2 K/mm3 (0.0-0.8) 08/17/18 05:16 Eosinophils # (Manual) 0.0 K/mm3 (0.0-0.4) 08/17/18 05:16 Basophils # (Manual) 0.0 K/mm3 (0.0-0.1) 08/17/18 05:16 Metamyelocytes # 0.0 K/mm3 08/17/18 05:16 Myelocytes # 0.0 K/mm3 08/17/18 05:16 Promyelocytes # 0.0 K/mm3 08/17/18 05:16 Blast Cells # 0.0 K/mm3 08/17/18 05:16 WBC Morphology Not Reportable 08/17/18 05:16 Hypersegmented Neuts Not Reportable 08/17/18 05:16 Hyposegmented Neuts Not Reportable 08/17/18 05:16 Hypogranular Neuts Not Reportable 08/17/18 05:16 Smudge Cells Not Reportable 08/17/18 05:16 Toxic Granulation Not Reportable 08/17/18 05:16 Toxic Vacuolation Not Reportable 08/17/18 05:16 Dohle Bodies Not Reportable 08/17/18 05:16 Pelger-Huet Anomaly Not Reportable 08/17/18 05:16 Sidney Rods Not Reportable 08/17/18 05:16 Platelet Estimate Consistent w auto 08/17/18 05:16 Clumped Platelets Not Reportable 08/17/18 05:16 Plt Clumps, EDTA Not Reportable 08/17/18 05:16 Large Platelets Not Reportable 08/17/18 05:16 Giant Platelets Not Reportable 08/17/18 05:16 Platelet Satelliting Not Reportable 08/17/18 05:16 Plt Morphology Comment Not Reportable 08/17/18 05:16 RBC Morphology Not Reportable 08/17/18 05:16 Dimorphic RBCs Not Reportable 08/17/18 05:16 Polychromasia Not Reportable 08/17/18 05:16 Hypochromasia Not Reportable 08/17/18 05:16 Poikilocytosis Not Reportable 08/17/18 05:16 Anisocytosis Few 08/17/18 05:16 Microcytosis Not Reportable 08/17/18 05:16 Macrocytosis Not Reportable 08/17/18 05:16 Spherocytes Not Reportable 08/17/18 05:16 Pappenheimer Bodies Not Reportable 08/17/18 05:16 Sickle Cells Not Reportable 08/17/18 05:16 Target Cells Not Reportable 08/17/18 05:16 Tear Drop Cells Not Reportable 08/17/18 05:16 Ovalocytes Not Reportable 08/17/18 05:16 Helmet Cells Not Reportable 08/17/18 05:[address] [place] Meinrad Bodies Not Reportable 08/17/18 05:16 Clay Rings Not Reportable 08/17/18 05:16 Abisai Cells Not Reportable 08/17/18 05:16 Bite Cells Not Reportable 08/17/18 05:16 Crenated Cell Not Reportable 08/17/18 05:16 Elliptocytes Not Reportable 08/17/18 05:16 Acanthocytes (Spur) Not Reportable 08/17/18 05:16 Rouleaux Not Reportable 08/17/18 05:16 Hemoglobin C Crystals Not Reportable 08/17/18 05:16 Schistocytes Not Reportable 08/17/18 05:16 Malaria parasites Not Reportable 08/17/18 05:16 Hernán Bodies Not Reportable 08/17/18 05:16 Hem Pathologist Commnt No 08/17/18 05:16 PT 13.6 Sec. (12.2-14.9) 08/16/18 21:26 INR 0.99 (0.87-1.13) 08/16/18 21:26 VBG pH 7.493 (7.320-7.420) H 08/16/18 21:26 Sodium 141 mmol/L (137-145) D 08/18/18 05:50 Potassium 4.3 mmol/L (3.6-5.0) 08/18/18 05:50 Chloride 105.6 mmol/L (98-107) 08/18/18 05:50 Carbon Dioxide 24 mmol/L (22-30) 08/18/18 05:50 Anion Gap 16 mmol/L 08/18/18 05:50 BUN 6 mg/dL (9-20) L 08/18/18 05:50 Creatinine 0.9 mg/dL (0.8-1.5) 08/18/18 05:50 Estimated GFR > 60 ml/min 08/18/18 05:50 BUN/Creatinine Ratio 7 % 08/18/18 05:50 Glucose 92 mg/dL (75-100) 08/18/18 05:50 Lactic Acid 0.80 mmol/L (0.7-2.0) 08/17/18 00:34 Calcium 8.3 mg/dL (8.4-10.2) L 08/18/18 05:50 Total Bilirubin 0.30 mg/dL (0.1-1.2) 08/16/18 21:26 AST 103 units/L (5-40) H 08/16/18 21:26 ALT 53 units/L (7-56) 08/16/18 21:26 Alkaline Phosphatase 55 units/L (35-129) 08/16/18 21:26 Total Protein 6.2 g/dL (6.3-8.2) L 08/16/18 21:26 Albumin 3.1 g/dL (3.9-5) L 08/16/18 21:26 Albumin/Globulin Ratio 1.0 % 08/16/18 21:26 Lipase 35 units/L (13-60) 08/16/18 21:26 Urine Color Straw (Yellow) 08/17/18 02:20 Urine Turbidity Clear (Clear) 08/17/18 02:20 Urine pH 7.0 (5.0-7.0) 08/17/18 02:20 Ur Specific Jelm 1.010 (1.003-1.030) 08/17/18 02:20 Urine Protein <15 mg/dl mg/dL (Negative) 08/17/18 02:20 Urine Glucose (UA) Neg mg/dL (Negative) 08/17/18 02:20 Urine Ketones Neg mg/dL (Negative) 08/17/18 02:20 Urine Blood Sm (Negative) 08/17/18 02:20 Urine Nitrite Neg (Negative) 08/17/18 02:20 Urine Bilirubin Neg (Negative) 08/17/18 02:20 Urine Urobilinogen < 2.0 mg/dL (<2.0) 08/17/18 02:20 Ur Leukocyte Esterase Neg (Negative) 08/17/18 02:20 Urine WBC (Auto) < 1.0 /HPF (0.0-6.0) 08/17/18 02:20 Urine RBC (Auto) < 1.0 /HPF (0.0-6.0) 08/17/18 02:20 RPR Titer 1:8 08/17/18 12:52 RPR Reactive (Nonreactive) 08/17/18 12:52 Hep Bs Antigen Non-reactive (Negative) 08/17/18 15:30 Hep B Core IgM Ab Indeterminate (NonReactive) 08/17/18 15:30 Hepatitis C Antibody Non-reactive (NonReactive) 08/17/18 15:30 Monoscreen Negative (Negative) 08/17/18 12:52 HIV 1&2 Antibody Rapid Non react (Non React) 08/18/18 10:34 HIV P24 Antigen React (Non React) 08/18/18 10:34
[2018-08-20] MEDS ORDERED: BICILLIN L-A IM ONE (13:00)
[2018-08-20 13:12] VITALS: BP 102/67
[2018-08-20 22:14] LABS: HIV-1 RNA QN PCR 6.91 Log cps/mL
[2018-08-22 08:26] LABS: Hepatitis A Antibody IgM NonReactive (NonReactive)
== END 2018-08-20 16:30 | disposition home or self-care (01) | DRG 868 ==
LOC: ED 19:37 → 3A 08-17 02:13
PROVIDERS: ADMIT Internal Medicine; ATTEND Internal Medicine
DX: A53.9 Syphilis, unspecified (principal); R65.10 Systemic inflammatory response syndrome (SIRS) of non-infectious origin without acute organ dysfunction; E87.1 Hypo-osmolality and hyponatremia; F17.200 Nicotine dependence, unspecified, uncomplicated; E86.0 Dehydration; E86.1 Hypovolemia; I95.9 Hypotension, unspecified; K59.00 Constipation, unspecified; R74.0 Nonspecific elevation of levels of transaminase and lactic acid dehydrogenase [LDH]; E83.51 Hypocalcemia; Z21 Asymptomatic human immunodeficiency virus [HIV] infection status; D72.819 Decreased white blood cell count, unspecified; Z82.49 Family history of ischemic heart disease and other diseases of the circulatory system
CPT/HCPCS: 36415; 70450; 71045; 74177; 80048; 80053; 80074; 81001; 82140; 82805; 83690; 85007; 85025; 85610; 86308; 86592; 86593; 86644; 86645; 86664; 86665; 86689; 86780; 87040; 87086; 87535; 87536; 87806; 93005; 93010; 96361; 96374; 96375; J0561; J0610; J1650; J1956; J2543; J7030; J7040; Q9967

== ENCOUNTER 2018-08-25 10:07 | Emergency (ER) | payer SELFPAY ==
[2018-08-25 10:24] VITALS: BP 124/74
== END 2018-08-25 11:21 | disposition left against medical advice (07) ==
LOC: ED 10:07
DX: Z76.0 Encounter for issue of repeat prescription (principal); Z53.21 Procedure and treatment not carried out due to patient leaving prior to being seen by health care provider

== ENCOUNTER 2018-08-30 10:59 | Emergency (ER) | payer SELFPAY ==
[2018-08-30 11:15] VITALS: BP 115/79
== END 2018-08-30 16:25 | disposition left against medical advice (07) ==
LOC: ED 10:59
DX: Z51.89 Encounter for other specified aftercare (principal); Z53.21 Procedure and treatment not carried out due to patient leaving prior to being seen by health care provider

== ENCOUNTER 2019-07-20 15:31 | Emergency (ER) | payer SELFPAY ==
--- NOTE | 2019-07-20 15:42 | Event Note ---
ED Screening Note Date of service: 07/20/19 Time: 15:40 ED Screening Note: 24 y o male presents to ed cc of jaw pain and swelling x 4 days states pain and swelling like now x 2 days This initial assessment/diagnostic orders/clinical plan/treatment(s) is/are subject to change based on patients health status, clinical progression and re- assessment by fellow clinical providers in the ED. Further treatment and workup at subsequent clinical providers discretion. Patient/guardian urged not to elope from the ED as their condition may be serious if not clinically assessed and managed. Initial orders include: I &D ACC eval
[2019-07-20 15:43] VITALS: BP 122/79
[2019-07-20] MEDS ORDERED: TYLENOL #3 PO ONE (18:41)
--- NOTE | 2019-07-20 18:41 | Emergency Department Report ---
- General Chief complaint: Neck Pain/Injury Stated complaint: NECK PAIN/POSS INFECTION Time Seen by Provider: 07/20/19 15:38 Source: patient Mode of arrival: Ambulatory Limitations: No Limitations - History of Present Illness Initial comments: This is a 24-year-old -Armenian male. Patient comes in for a 4 day history of left jaw swelling and neck pain with drainage. Patient has a history of HIV and is on the Biktary. Patient denies any fever or chills no nausea no vomiting. Patient reports no difficulty to swallow. Patient does report is painful and has taken Aleve. Onset/Timin -: days(s) Tetanus Up to Date: unsure Location: neck Severity scale (0 -10): 8 Quality: aching, sharp Consistency: constant Improves with: medication Worsens with: palpation Context: none Associated symptoms: denies other symptoms - Related Data Previous Rx's Medication Instructions Recorded Last Taken Type Acetaminophen [Acetaminophen TAB] 650 mg PO Q4H PRN #15 tablet 08/19/18 Unknown Rx Polyethylene Glycol 3350 [Miralax 17 gm PO QDAY PRN #30 powd.pack 08/19/18 Unknown Rx 3350] Acetaminophen/Codeine [Tylenol 1 tab PO Q6H PRN #12 tab 07/20/19 Unknown Rx /Codeine # 3 tab] Ibuprofen [Motrin 800 MG tab] 800 mg PO Q8HR PRN #30 tablet 07/20/19 Unknown Rx Sulfamethoxazole/Trimethoprim 1 each PO BID 10 Days #20 tablet 07/20/19 Unknown Rx [Bactrim DS TAB] cephALEXin [Keflex] 500 mg PO Q8HR 10 Days #30 cap 07/20/19 Unknown Rx Allergies Allergy/AdvReac Type Severity Reaction Status Date / Time No Known Allergies Allergy Verified 08/16/18 21:05 Abscess Boil HPI - HPI Chief Complaint: Neck Pain/Injury Stated Complaint: NECK PAIN/POSS INFECTION Time Seen by Provider: 07/20/19 15:38 Home Medications: Previous Rx's Medication Instructions Recorded Last Taken Type Acetaminophen [Acetaminophen TAB] 650 mg PO Q4H PRN #15 tablet 08/19/18 Unknown Rx Polyethylene Glycol 3350 [Miralax 17 gm PO QDAY PRN #30 powd.pack 08/19/18 Unknown Rx 3350] Acetaminophen/Codeine [Tylenol 1 tab PO Q6H PRN #12 tab 07/20/19 Unknown Rx /Codeine # 3 tab] Ibuprofen [Motrin 800 MG tab] 800 mg PO Q8HR PRN #30 tablet 07/20/19 Unknown Rx Sulfamethoxazole/Trimethoprim 1 each PO BID 10 Days #20 tablet 07/20/19 Unknown Rx [Bactrim DS TAB] cephALEXin [Keflex] 500 mg PO Q8HR 10 Days #30 cap 07/20/19 Unknown Rx Allergies/Adverse Reactions: Allergies Allergy/AdvReac Type Severity Reaction Status Date / Time No Known Allergies Allergy Verified 08/16/18 21:05 ED Review of Systems ROS: Stated complaint: NECK PAIN/POSS INFECTION Other details as noted in HPI Comment: All other systems reviewed and negative ED Past Medical Hx - Past Medical History Previous Medical History?: No Hx HIV: Yes (on Biktarvy) - Surgical History Past Surgical History?: No - Social History Smoking Status: Current Every Day Smoker Substance Use Type: Alcohol, Marijuana - Medications Home Medications: Home Medications Medication Instructions Recorded Confirmed Last Taken Type Acetaminophen [Acetaminophen TAB] 650 mg PO Q4H PRN #15 tablet 08/19/18 Unknown Rx Polyethylene Glycol 3350 [Miralax 17 gm PO QDAY PRN #30 powd.pack 08/19/18 Unknown Rx 3350] Acetaminophen/Codeine [Tylenol 1 tab PO Q6H PRN #12 tab 07/20/19 Unknown Rx /Codeine # 3 tab] Ibuprofen [Motrin 800 MG tab] 800 mg PO Q8HR PRN #30 tablet 07/20/19 Unknown Rx Sulfamethoxazole/Trimethoprim 1 each PO BID 10 Days #20 tablet 07/20/19 Unknown Rx [Bactrim DS TAB] cephALEXin [Keflex] 500 mg PO Q8HR 10 Days #30 cap 07/20/19 Unknown Rx ED Physical Exam - General Limitations: No Limitations General appearance: alert, in no apparent distress - Head Head exam: Present: atraumatic, normocephalic - Eye Eye exam: Present: normal appearance - Expanded ENT Exam Expanded Throat exam: Positive: normal inspection. Negative: tonsillar erythema, tonsillomegaly, tonsillar exudate - Back Exam Back exam: Present: normal inspection - Neurological Exam Neurological exam: Present: alert, oriented X3 - Psychiatric Psychiatric exam: Present: normal affect, normal mood - Expanded Skin Exam Expanded Type of lesion: Present: abscess Distribution of rash: neck Description of rash: Present: tenderness, erythematous, swelling, discharge, indurated. Absent: fluctuant ED Course Vital Signs 07/20/19 15:40 Temperature 97.5 F L Pulse Rate 88 Respiratory 18 Rate Blood Pressure 122/79 O2 Sat by Pulse 98 Oximetry ED Medical Decision Making - Medical Decision Making This is a 24-year-old -Armenian male. Patient comes in for a 4 day history of left jaw swelling and neck pain with drainage. Patient has a history of HIV and is on the Biktary. Patient denies any fever or chills no nausea no vomiting. Patient reports no difficulty to swallow. Patient does report is painful and has taken Aleve. Patient will be prescribed Keflex and Bactrim and ibuprofen for pain management. Patient was given good Rx information. This a patient to follow up with his infectious disease provider at [facility] If time is entered above; I have spent that time in minutes in the direct care of this critically ill patient, excluding procedure time. ED Disposition Clinical Impression: Abscess of skin of neck Disposition: DC-01 TO HOME OR SELFCARE Is pt being admited?: No Does the pt Need Aspirin: No Condition: Stable Instructions: Abscess (ED) Additional Instructions: Please take your antibiotics as prescribed. Take pain medication as needed. Do not operate heavy machinery while taking Tylenol No. 3. It's very important for you to follow up with her primary care provider for wound check. Prescriptions: Sulfamethoxazole/Trimethoprim [Bactrim DS TAB] 1 each PO BID 10 Days #20 tablet cephALEXin [Keflex] 500 mg PO Q8HR 10 Days #30 cap Ibuprofen [Motrin 800 MG tab] 800 mg PO Q8HR PRN #30 tablet PRN Reason: Pain , Severe (7-10) Acetaminophen/Codeine [Tylenol /Codeine # 3 tab] 1 tab PO Q6H PRN #12 tab PRN Reason: Pain , Severe (7-10) Referrals: PRIMARY CARE,MD [Primary Care Provider] - 3-5 Days Your,Provider [Other] - 3-5 Days
== END 2019-07-20 18:57 | disposition home or self-care (01) ==
LOC: ED 15:31
DX: L02.11 Cutaneous abscess of neck (principal); Z21 Asymptomatic human immunodeficiency virus [HIV] infection status; F17.200 Nicotine dependence, unspecified, uncomplicated; F12.10 Cannabis abuse, uncomplicated; Z79.899 Other long term (current) drug therapy
CPT/HCPCS: 99282

== ENCOUNTER 2019-07-23 10:34 | Emergency (ER) | payer SELFPAY ==
--- NOTE | 2019-07-23 11:27 | Emergency Department Report ---
HPI - General Chief Complaint: Rectal Pain Time Seen by Provider: 07/23/19 11:02 - HPI HPI: 24-year-old Afro-Romanian male presents to the emergency department with a complaint of constipation. The patient says he is only had one bowel movement in the last 2 weeks, and it was not satisfactory. This only occurred, he says, because he accidentally took too much Ex-Lax. He denies any abdominal pain, back pain, abdominal distention, nausea, vomiting or fever. He has a history of HIV for which he is compliant with medication. He says that he is staying appropriately hydrated. He denies any rectal pain. ED Past Medical Hx - Past Medical History Previous Medical History?: Yes Hx HIV: Yes (on Biktarvy) - Surgical History Past Surgical History?: No - Social History Smoking Status: Current Every Day Smoker Substance Use Type: Alcohol - Medications Home Medications: Home Medications Medication Instructions Recorded Confirmed Last Taken Type Acetaminophen [Acetaminophen TAB] 650 mg PO Q4H PRN #15 tablet 08/19/18 Unknown Rx Polyethylene Glycol 3350 [Miralax 17 gm PO QDAY PRN #30 powd.pack 08/19/18 Unknown Rx 3350] Acetaminophen/Codeine [Tylenol 1 tab PO Q6H PRN #12 tab 07/20/19 Unknown Rx /Codeine # 3 tab] Ibuprofen [Motrin 800 MG tab] 800 mg PO Q8HR PRN #30 tablet 07/20/19 Unknown Rx Sulfamethoxazole/Trimethoprim 1 each PO BID 10 Days #20 tablet 07/20/19 Unknown Rx [Bactrim DS TAB] cephALEXin [Keflex] 500 mg PO Q8HR 10 Days #30 cap 07/20/19 Unknown Rx Docusate Sodium [Colace] 100 mg PO BID PRN #20 capsule 07/23/19 Unknown Rx Magnesium Citrate [Citrate of 300 ml PO NOW #1 bottle 07/23/19 Unknown Rx Magnesia] ED Review of Systems ROS: Stated complaint: CONSTIPATION Other details as noted in HPI Comment: All other systems reviewed and negative Constitutional: denies: chills, fever Gastrointestinal: constipation. denies: abdominal pain, nausea, vomiting Musculoskeletal: denies: back pain Physical Exam - Physical Exam Vital Signs: Vital Signs 07/23/19 10:40 Temperature 98.0 F Pulse Rate 64 Respiratory 16 Rate Blood Pressure 113/67 O2 Sat by Pulse 99 Oximetry Physical Exam: GENERAL: The patient is well-developed well-nourished. HENT: Normocephalic. Atraumatic. Patient has moist mucous membranes. EYES: Extraocular motions are intact. NECK: Supple. Trachea is midline. CHEST/LUNGS: Clear to auscultation. There is no respiratory distress noted. HEART/CARDIOVASCULAR: Regular. There is no tachycardia. There is no murmur. ABDOMEN: Abdomen is soft, nontender. Patient has normal bowel sounds. There is no abdominal distention. SKIN: Skin is warm and dry. NEURO: The patient is awake, alert, and oriented. The patient is cooperative. The patient has no focal neurologic deficits. Normal speech. MUSCULOSKELETAL: There is no tenderness or deformity. There is no evidence of acute injury. ED Course Vital Signs 07/23/19 10:40 Temperature 98.0 F Pulse Rate 64 Respiratory 16 Rate Blood Pressure 113/67 O2 Sat by Pulse 99 Oximetry ED Medical Decision Making - Radiology Data Radiology results: image reviewed interpreted by me: Abdominal x-ray shows some mild to moderate stool volume and nonobstructive bowel gas. - Medical Decision Making Patient complains of a 2 week history of some constipation. Abdomen is soft, nontender, nondistended and nontoxic in appearance. Patient denies any abdominal or rectal pain. Abdominal x-ray shows a mild to moderate amount of stool volume and some nonobstructive bowel gas. Given all of this, low suspici on for bowel obstruction. Vital signs stable throughout his ED course. The patient was placed on Colace and given a dose of magnesium citrate. Recheck to follow-up with primary care and return to the ER if any worsening of symptoms or any acute distress. - Differential Diagnosis constipation, dehydration, bowel obstruction Critical Care Time: No Critical care attestation.: If time is entered above; I have spent that time in minutes in the direct care of this critically ill patient, excluding procedure time. ED Disposition Clinical Impression: Increased stool volume Disposition: DC-01 TO HOME OR SELFCARE Is pt being admited?: No Condition: Stable Instructions: Constipation (ED), High Fiber Diet (ED) Additional Instructions: Please follow-up with a primary care physician in the next few days. Return to the emergency Department with any worsening of your symptoms or any acute distress. Prescriptions: Magnesium Citrate [Citrate of Magnesia] 300 ml PO NOW #1 bottle Docusate Sodium [Colace] 100 mg PO BID PRN #20 capsule PRN Reason: Constipation Referrals: MONIK CELAYA MD [Staff Physician] - 3-5 Days [facility] [Outside] - 3-5 Days Forms: Work/School Release Form(ED) Time of Disposition: 12:07
[2019-07-23 12:15] VITALS: BP 118/70
--- NOTE | 2019-07-23 12:44 | XRay Report ---
ABDOMEN 2 VIEW(S) INDICATION / CLINICAL INFORMATION: Constipation. Abdominal pain. COMPARISON: None available. FINDINGS: TUBES / LINES: None. BOWEL GAS PATTERN: There is a mild amount of stool scattered throughout the colon. I see no evidence of bowel obstruction or mass effect. FREE AIR / EXTRALUMINAL GAS: None seen. ADDITIONAL FINDINGS: No abnormal calcification is seen. IMPRESSION: No significant abnormality. Signer Name: Dayne Frost MD Signed: 07/23/2019 12:40 PM Workstation Name: [id number]
== END 2019-07-23 12:14 | disposition home or self-care (01) ==
LOC: ED 10:34
DX: R19.5 Other fecal abnormalities (principal); K59.00 Constipation, unspecified; F17.200 Nicotine dependence, unspecified, uncomplicated; Z21 Asymptomatic human immunodeficiency virus [HIV] infection status; Z79.899 Other long term (current) drug therapy
CPT/HCPCS: 74019